=== PATIENT | female | born 1990 | race African-American/Black ===

== ENCOUNTER 2024-04-24 09:08 | Outpatient (AMB) | payer OTHER, SELFPAY ==
--- NOTE | 2024-04-24 09:04 | MHC.PC.OV ---
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 Intake Note: New patient vist Is last menstrual period known: Yes Last menstrual period: 04/03/24 Allergies pollen extracts [POLLEN] Allergy (Unknown, Verified 04/24/24 09:44) RUNNY NOSE Medication List - Last Reconciled 04/24/24 by YASMANI Walsh- No Known Home Meds Tobacco use date assessed: 04/24/24 Dental Screening Dental Screen Date: 04/24/24 Did you have a dental visit in the last 12 months?: Yes Did you have a dental problem in the last 6 months where you did not have access to dental care?: No Was dental information given to patient?: Patient has dentist HPI HPI Comments History of Present Illness Details 33 y/o F with morbid obestiy, MDD, MEREDITH Health Maintenance: 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 Ketapine? Vistaril. Used this before with some effect, it also helped her to sleep. never been in counseling but is interested. Plan Refer to counselor for MDD and generalized anxiety disorder. No interest in starting medications at this time. Refer to bariatrics for assistance with weight loss. Return to the office in 2 months to follow up to ensure that your consults have gone through and that you have no new needs. Labs were not done today as we will be following up with the bariatric office which performs an in-depth health evaluation. 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 1. Little interest or pleasure in doing things: more than half the days 2. Feeling down, depressed, or hopeless: more than half the days 3. Trouble falling or staying asleep, or sleeping too much: more than half the days 4. Feeling tired or having little energy: nearly every day 5. Poor appetite or overeating: nearly every day 6. Feeling bad about yourself - or that you are a failure or have let yourself or your family down: nearly every day 7. Trouble concentrating on things, such as reading the newspaper or watching television: not at all 8. Moving or speaking so slowly that other people could have noticed. Or the opposite - being so fidgety or restless that you have been moving around a lot more than usual: more than half the days 9. Thoughts that you would be better off or of hurting yourself in some way: not at all Total score: 17 Depression Screening Interpretation: Positive Depression Screening Follow-up: Existing condition Depression Screening Done: Yes 81758 - PHQ-9 Billing: Yes Source: Developed by Drs. Chidi Orozco, Marbella Kearney, Truong Byrne and colleagues, with an educational melchor from [employer] Thrive Questionnaire Date Thrive assessed: 04/24/24 I am a: Patient What is your living situation today?: I have a steady place to live Within the past 12 months, did the food you bought not last and you didn't have the money to get more?: Never true Within the past 12 months, did you worry whether your food would run out before you got money to buy more?: Never true Do you have trouble paying for medicines?: No Do you have trouble getting transportation to medical appointments?: No Do you have trouble paying your heating and electricity bill?: No Do you have trouble taking care of your child, family member or friend?: No Do you have trouble with day-to-day activities such as bathing, preparing meals, shopping, managing finances, etc.?: No Are you currently unemployed and looking for a job?: No Are you interested in more education?: No Please select the resources that you would like help with: None Currently or been in a relationship where the following occur: no concerns reported THRIVE Score: 0 AUDIT C Alcohol Use Questionnaire (AUDIT-C) 1. How often do you have a drink containing alcohol?: Never 3. How often do you have six or more drinks on one occasion?: Never Total Score: 0 Score Reviewed/Action Taken: Yes MEREDITH-7 AMB Questionnaire MEREDITH-7 Date MEREDITH - 7 assessed: 04/24/24 Feeling nervous, anxious, or on edge: 3 = Nearly every day Not being able to stop or control worryin = Nearly every day Worrying too much about different things: 3 = Nearly every day Trouble relaxin = Nearly every day Being so restless that it is hard to sit still: 3 = Nearly every day Becoming easily annoyed or irritable: 3 = Nearly every day Feeling afraid as if something awful might happen: 3 = Nearly every day Total MEREDITH-7 score (0-4 normal; 5-9 mild; 10-14 moderate; 15-21 severe): 21 Source: Developed by Drs. Chidi Orozco, Marbella Kearney, Truong Byrne and colleagues, with an educational melchor from [employer] MEREDITH-7 Assessment Billing MEREDITH-7 Assessment Tool: MEREDITH-7 Assessment 35361 ACT Questionnaire In the past 4 weeks, how much of the time did your asthma keep you from getting as much done at work, school or at home?: Most of the time During the past 4 weeks, how often have you had shortness of breath?: More than once a day During the past 4 weeks, how often did your asthma symptoms wake you up at night or earlier than usual in the morning?: 2-3 nights a week During the past 4 weeks, how often have you had to use your rescue inhaler or nebulizer medication?: More than 3 times per day (Two times a day ) How would you rate your asthma control during the past 4 weeks?: Somewhat controlled ACT Interpretation: Positive Score: 9 Review of Systems Const Details: Constitutional: Denies fever. Skin: Denies rash. Eye: Denies eye pain. ENMT: Denies sore throat and nasal congestion. Respiratory: Denies shortness of breath and cough. Gastrointestinal: Denies nausea, vomiting or abdominal pain. Cardiovascular: Denies chest pain and syncope. Genitourinary: Denies dysuria. Musculoskeletal: Denies back pain and extremity pain. Neurologic: Denies headaches, confusion, and weakness. Psychiatric: Denies suicidal thoughts and substance abuse. Allergy/ Immunologic: Denies impaired immunity. Physical exam (Primary Care) Vital Signs: Last Vital Signs Temp 98.4 F 04/24/24 09:27 Pulse 74 04/24/24 09:27 BP 118/74 04/24/24 09:27 Pulse Ox 97 04/24/24 09:27 Oxygen Delivery Method Room Air 04/24/24 09:27 BMI result Body Mass Index 44.3 BMI Assessment/Plan discussion: High BMI High, discussed plan: lifestyle Tobacco/Smoking Status: Tobacco use Status Tobacco use date assessed 04/24/24 04/24/24 09:28 Patient Tobacco Use Status Former Tobacco user 04/24/24 09:28 e-Cigarette/Vaping Use Currently Using 04/24/24 09:28 PHQ-9: PHQ-9 Score PHQ-9: Total score 17 04/24/24 11:12 Depression Screening Interpretation: Positive Depression Screening Follow-up: Existing condition Thrive Assessment: Date of Thrive Assessment Date Thrive assessed 04/24/24 04/24/24 09:53 Currently or been in a relationship where the following occur: no concerns reported Const Other: General: Well developed, well nourished, in no acute distress. Appears stated age. Head: Normocephalic, atraumatic. Eyes: Pupils are equal, round and reactive to light and accommodation. Conjunctivae are clear. Vision grossly normal. Ears: TMs clear AU, EACS WNL Nose: Patent, without discharge. Mouth: There are no ulcers or lesions noted. No inflammation, no post nasal drip, no plaques nor exudates. Neck: Supple, no adenopathy or thyromegaly. Lungs: Clear to auscultation bilaterally. No rales, rhonchi or wheeze noted. Good air flow in all villaseñor. Heart: Regular rate and rhythm. No murmurs, click, rubs or gallops are noted. Abdomen: Bowel sounds present in all quadrants. The abdomen is soft, nontender, with no masses or organomegaly noted. No hernias are noted. Musculoskeletal: Joints are nontender, without swelling, redness, or effusions. Range of motion is observed to be normal. Pulses: Peripheral pulses are equal and palpable bilaterally. Extremities: No clubbing, cyanosis nor edema is noted. Neurologic: Gait and station normal. Cranial Nerves 2-12 intact. Motor strength grossly symmetrical and intact. No sensory loss. Balance normal. Skin: No rashes, ulcers, or lesions noted. Turgor is good. Skin color is good. Hair and nails are without abnormalities. Psych: Normal eye contact, affect and mood appropriate, and normal interactions. Patient is alert and appropriate to context. Assessment and Plan Assessment & Plan (1) Encounter for general adult medical examination without abnormal findings: Code(s): Z00.00 - Encounter for general adult medical examination without abnormal findings (2) MEREDITH (generalized anxiety disorder): Code(s): F41.1 - Generalized anxiety disorder (3) Morbid obesity with BMI of 40.0-44.9, adult: Code(s): E66.01 - Morbid (severe) obesity due to excess calories; Z68.41 - Body mass index [BMI] 40.0-44.9, adult (4) MDD (major depressive disorder), recurrent episode: Code(s): F33.9 - Major depressive disorder, recurrent, unspecified Qualifiers: Major depression episode severity: mild Qualified Code(s): F33.0 - Major depressive disorder, recurrent, mild Orders: Referrals Counseling Referral F41.1 - Generalized anxiety disorder Bariatric Surgery Referral E66.01 - Morbid (severe) obesity due to excess calories, Z68.41 - Body mass index [BMI] 40.0-44.9, adult Patient Instructions: Walk-In Care (Urgent Care): We Make it Easy Walk-in for urgent medical issues such as: ? Seasonal Allergies ? Insect Bites ? Cough ? Diarrhea ? Acute Asthma Attacks ? Back, Knee or Joint Pain ? Ear Infection ? Fever without a Rash ? Headaches ? Nausea ? [place] Eye, Rash or Skin Irritation ? Sore Throat ? Sports Physicals ? Vomiting Most insurances are accepted. Patients do not need to be part of the [facility] to seek care at the walk-in clinic. Locations [facility] , [place] [address] ? [phone] [facility] Walk-In Care in [place] provides services to ages 18 and over. Open Saturday-Saturday: 8 a.m. to 5 p.m. and Saturday: 9 a.m. to 3 p.m.* *Hours may vary due to staffing availability. To confirm Walk-In Care hours in [place], please call [phone]. [address] [place] [address] ? [phone] [facility] in [place] provides services to ages 12 and over. Open Saturday-Saturday: 8 a.m. to 5 p.m. Hours may vary due to staffing availability. To confirm Walk-In Care hours in [place], please call [phone]. LABORATORY SERVICES: [facility] Lab ? Primary Location [address] [place] [address] Saturday through Saturday 6:00 AM ? 5:00 PM Saturday 7:00 AM ? 11:00 AM* [phone] The [facility] Lab is centrally located near the front entrance of the [facility] for easy outpatient access. Convenient parking is provided for outpatients. *Hours may vary due to staffing availability. To confirm Laboratory hours for any location, please call [phone]. Offsite Location For your convenience, we offer offsite laboratory draw stations at the following locations: [address] [place] [address] ? [address], [address] Saturday through Saturday 7:30 AM ? 1:00 PM* [phone] *Hours may vary due to staffing availability. To confirm Laboratory hours for any location, please call [phone]. [place] ? [address] Saturday through Saturday 6:00 AM ? 3:30 PM* Saturday 6:30 AM ? 3 PM* [phone] *Hours may vary due to staffing availability. To confirm Laboratory hours for any location, please call [phone] [place] [address] Saturday through Saturday 7:30 AM ? 4:00 PM* [phone] *Hours may vary due to staffing availability. To confirm Laboratory hours for any location, please call [phone]. [facility] Saturday through 9:00 AM ? 4:00 PM* *Hours may vary due to staffing availability. To confirm Laboratory hours for any location, please call [phone]. Appointments are not necessary. Walk-ins are welcome. Like all the departments throughout the [facility], our Lab undergoes frequent reviews to ensure the quality and accuracy of test results, and our staff takes special pride in its status as a nationally accredited facility. Patient Portal: ONE PATIENT. ONE RECORD. BETTER CARE. [facility] has a fully integrated, cutting-edge mobile electronic health information system that has revolutionized the way we care for our patients and manage our organization. This system improves communication and coordination enabling us to provide safe, higher-quality care, and an overall positive experience for staff and patients. Our first priority, as always, is to deliver the highest quality care possible. The system is running in the background supporting that priority. This portal is for all [facility] and [facility] services and practices. If you are experiencing any technical difficulties with enrolling or logging into the Patient Portal please complete the [facility] Patient Portal Technical Support Form. [facility] now offers a new secure on-line interactive tool for patients to review their health information ? ?Patient Portal. This interactive web portal will enable patients and their families to take an active role in their care by providing easy, secure access to their health information via the internet. The Patient Portal provides patients with instant access to their health information, including laboratory results, medications, allergies, demographic information, visit history, and more. In addition to managing their own care, parents and health care proxies with authorized consent will appreciate the ability to access the records of those individuals for whom they provide care. Please note: if you wish to gain access (Proxy) to another patient?s portal, you will be required to come to the Medical Records Department in person at [facility]. Both the patient giving proxy access and the proxy will need to provide photo identification and complete the appropriate authorization. The Patient Portal also allows track their appointments online. The [facility] Patient Portal also saves patients time by allowing them to submit updates to their demographic and contact information prior to their visits. Portal email notifications will also alert patients to any new activity on their portal, such as test results and new appointments. In order to initially enroll in the [facility] Patient Portal, you will need to enter some required information including the following: your [facility] Medical Record number your personal home email address name date of Please note: In order to enroll in the [facility] Patient Portal, we need to have your email address on file in your electronic medical record. ?The email address needs to be specific for one person (yourself) in order for your Portal enrollment to be successful. ?You can update your email address in person with our Registration staff when you are registering for a hospital visit. ?Otherwise, you will need to come to the Health Information Management (Medical Records) Department at [facility]. ?We are open from Saturday ? Saturday from 7:30 a.m. ? 4:30 p.m. ?You will be required to present a photo id. Once you have successfully enrolled in the Patient Portal, you will receive a one-time user id and password for the Portal, sent to your email address. ?This will allow you to log into the Patient Portal within 99 hrs and reset your own logon id and password, and define personal security questions. ?Once your permanent login and password have been set, you can log into the [facility] Patient Portal at any time via the blue button above or from the Portal Logon button on any page of the [facility] website. [facility] and [facility] encourage all of our patients to enroll in Patient Portal as it presents a valuable opportunity for patients and their families to actively participate in their care and stay healthy Welcome to [facility]. ?We look forward to working with you. Health screenings for women You should visit your health care provider from time to time, even if you are healthy. The purpose of these visits is to: Screen for medical issues Assess your risk for future medical problems Encourage a healthy lifestyle Update vaccinations and other preventive care services Help you get to know your provider in case of an illness Information Even if you feel fine, you should still see your provider for regular checkups. These visits can help you avoid problems in the future. For example, the only way to find out if you have high blood pressure is to have it checked regularly. High blood sugar and high cholesterol levels also may not have any symptoms in the early stages. A simple blood test can check for these conditions. There are specific times when you should see your provider or receive specific health screenings. The [place] Preventive Services Task Force publishes a list of recommended screenings. Below are screening guidelines for women ages 18 to 39. BLOOD PRESSURE SCREENING Your blood pressure should be checked at least once every 3 to 5 years if: Your blood pressure is in the normal range (top number less than 120 mm Hg and bottom number less than 80 mm Hg) You don't have risk factors for high blood pressure Ask your provider if you need your blood pressure checked more often if: The top number is 120 to 129 mm Hg or the bottom number is 70 to 79 mm Hg You have diabetes, heart disease, kidney problems, are overweight, or have certain other health conditions You have a first-degree relative with high blood pressure You are Black You had high blood pressure during a If the top number is 130 mm Hg or greater or the bottom number is 80 mm Hg or greater, this is considered stage 1 hypertension. Schedule an appointment with your provider to learn how you can reduce your blood pressure. Watch for blood pressure screenings in your area. Ask your provider if you can stop in to have your blood pressure checked. BREAST CANCER SCREENING Experts do not agree about the benefits of breast self-exams in finding breast cancer or saving lives. Talk to your provider about what is best for you. A screening mammogram is not recommended for most women under age 40. Your provider may discuss and recommend mammograms, MRI scans, or ultrasounds if you have an increased risk for breast cancer, such as: A mother or sister who had breast cancer at a young age (most often starting screening earlier than the age the close relative was diagnosed) You carry a high-risk genetic marker CERVICAL CANCER SCREENING Cervical cancer screening should start at age 21 years unless your provider advises otherwise. After the first test: Women ages 21 through 29 should have a Pap test every 3 years. Exoprts do not agree on whether HPV testing is recommended for this age group. Women ages 30 through 65 should be screened with either a Pap test every 3 years or the HPV test every 5 years or both tests every 5 years (called cotesting ). Women who have been treated for precancer (cervical dysplasia) should continue to have Pap tests for 20 years after treatment or until age 65, whichever is longer. If you have had your uterus and cervix removed (total hysterectomy), and you have not been diagnosed with cervical cancer or precancer (high grade cervical neoplasia), you do not need cervical cancer screening. CHOLESTEROL SCREENING Cholesterol screening should begin at: Age 45 for women with no known risk factors for coronary heart disease Age 20 for women with known risk factors for coronary heart disease Repeat cholesterol screening should take place: Every 5 years for women with normal cholesterol levels More often if changes occur in lifestyle (including weight gain and diet) More often if you have diabetes, heart disease, kidney problems, or certain other conditions DIABETES SCREENING You should be screened for diabetes starting at age 35 and then repeated every 3 years if you have no risk factors for diabetes. Screening may need to start earlier and be repeated more often if you have other risk factors for diabetes, such as: You have a first degree relative with diabetes. You are overweight or have obesity. You have high blood pressure, prediabetes, or a history of heart disease. Screening for diabetes should be done if you are planning to become and you are overweight and have other risk factors such as high blood pressure. DENTAL EXAM Go to the dentist once or twice every year for an exam and cleaning. Your dentist will evaluate if you need more frequent visits. EYE EXAM Have an eye exam every 5 to 10 years before age 40. If you have vision problems, have an eye exam every 2 years or more often if recommended by your provider. You should have an eye exam that includes an examination of your retina (back of your eye) at least every year if you have diabetes. IMMUNIZATIONS Commonly needed vaccines include: Flu shot: get one every year. COVID-19 vaccine: ask your provider what is best for you. Tetanus-diphtheria and acellular pertussis (Tdap) vaccine: have one at or after age 19 as one of your tetanus-diphtheria vaccines if you did not receive it as an adolescent. Tetanus-diphtheria: have a booster (or Tdap) every 10 years. Varicella vaccine: receive 2 doses if you never had chickenpox or the varicella vaccine. Hepatitis B vaccine: receive 2, 3, or 4 doses, depending on your exact circumstances. Measles, mumps, and rubella (MMR) vaccine: receive 1 to 2 doses if you are not already immune to MMR. Your provider can tell you if you are immune. Ask your provider about the human papillomavirus (HPV) vaccine if: You have not received the HPV vaccine in the past You have not completed the full vaccine series (you should catch up on this shot) Ask your provider if you should receive other immunizations if you have certain health problems that increase your risk for some diseases such as pneumonia. INFECTIOUS DISEASE SCREENING Women who are sexually active should be screened for chlamydia and gonorrhea up until age 25. Women 25 years and older should be screened for chlamydia and gonorrhea if at high risk. Screening for hepatitis C: All adults ages 18 to 79 should get a one-time test for hepatitis C. people should be screened at every . Screening for human immunodeficiency virus (HIV): All people ages 15 to 65 should get a one-time test for HIV. Depending on your lifestyle and medical history, you may also need to be screened for infections such as syphilis and HIV, as well as other infections. PHYSICAL EXAM All adults should visit their provider from time to time, even if they are healthy. The purpose of these visits is to: Screen for disease Assess your risk of future medical problems Encourage a healthy lifestyle Update your vaccinations and other preventive care services Maintain a relationship with a provider in case of an illness Your height, weight, and BMI should be checked at every exam. During your exam, your provider may ask you about: Depression and anxiety Diet and exercise Alcohol and tobacco use Safety issues, such as using seat belts, smoke detectors, and intimate partner violence Your medicines and risk for interactions SKIN SELF-EXAM Your provider may check your skin for signs of skin cancer, especially if you're at high risk, such as if you: Have had skin cancer before Have close relatives with skin cancer Have a weakened immune system OTHER SCREENING Talk with your provider about colon cancer screening if you have a strong family history of colon cancer or polyps, or if you have had inflammatory bowel disease or polyps yourself. Routine bone density screening of women under 40 is not recommended. Coding Level of Care Code New Pt Prev Care 18-39yr(76854 Diagnoses Encounter for general adult medical examination without abnormal findings Z00.00 MEREDITH (generalized anxiety disorder) F41.1 Morbid obesity with BMI of 40.0-44.9, adult E66.01; Z68.41 Mild episode of recurrent major depressive disorder F33.0 Major depression episode severity: mild Additional Codes MEREDITH-7 Assessment Billing - MEREDITH-7 Assessment Tool: MEREDITH-7 Assessment 46912 ([id number])
[2024-04-24 09:27] VITALS: BP 118/74; PULSE 74; TEMP 36.9; O2SAT 97; BMI 44.3
== END 2024-04-24 09:57 | disposition home or self-care (01) ==
PROVIDERS: PCP Nurse Practitioner Family; Visit Provider Physician Assistant Medical
DX: Z00.00 Encounter for general adult medical examination without abnormal findings (principal); E66.01 Morbid (severe) obesity due to excess calories; Z68.41 Body mass index [BMI] 40.0-44.9, adult; F33.0 Major depressive disorder, recurrent, mild; F41.1 Generalized anxiety disorder
CPT/HCPCS: 99385

== ENCOUNTER → 2024-04-27 10:35 | Outpatient (BNVA) | payer OTHER, SELFPAY | PROVIDERS: PCP Nurse Practitioner Family; Visit Provider Physician Assistant Surgical ==

== ENCOUNTER 2024-06-16 14:43 | Outpatient (AMB) | payer OTHER, SELFPAY ==
[2024-06-16 14:15] VITALS: BMI 44.3
--- NOTE | 2024-06-16 14:15 | MHC.OFFVISWM ---
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 She heard about our program from her partner. Her goal is to lose weight and achieve a healthy lifestyle. She reports first being concerned about her weight 12 years ago, highest weight to date was 254. Current weight is 242 pounds with a BMI of 44.3. She has tried multiple methods of weight loss including fad diets without permanent results. She lives with her kids and daughters father. 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 She wakes at:?545 am, and goes to bed at?1 am. Dinner is at 730 pm. Breakfast: skip AM snack: skip Lunch: salad w grilled chicken, burger w fries PM snack: fruit Dinner: rice, beans, meat, salad After dinner: skip Other snacks: chocolate and candy Liquids: 16-32 oz water, 24 oz coke zero/diet coke or sprite, 48 oz cranberry juice daily Alcohol/marijuana/tobacco intake: 8 glasses wine per weekend, 4 shots vodka per weekend, smoke and edible cannabis daily, vape tobacco daily Exercise: none, no equipment at home, could join gym, r PF. 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 Current occupational exposures/hazards: No Cognitive needs: No Hearing needs: No Vision needs: Yes (Glasses/contacts) Telehealth Telehealth Telehealth Platform: Telephone Location of provider rendering services: practice address Location of patient: address on file Patient Identification confirmed using: Name, : Yes Telehealth method: voice only Patient verbally consented to treatment: Yes Patient verbally consented to billing insurance company: Yes Patient informed of any privacy concerns related to visit: Yes Minutes spent on Phone/Video with Pt.: 50 Assessment & Plan Assessment & Plan (1) Morbid obesity with BMI of 40.0-44.9, adult: Code(s): E66.01 - Morbid (severe) obesity due to excess calories; Z68.41 - Body mass index [BMI] 40.0-44.9, adult Category: Medical Plan: This is a?33 yo female who will start our SWL program to prepare for bariatric surgery.? Blood work, CXR, ECG, Abd US and UGI have been ordered. She is being scheduled for initial consultations. She will start SWL classes and watch the first three videos before her next appointment. 1. You have been given a link to our software kurt ([employer]) to generate an individualized nutritional and exercise plan specific for you. Please send me a screenshot of the plans you will generate Meal to include lean meat (beef, fish, pork, turkey, chicken), or turkish yogurt, or egg whites, or beans with a salad with olive oil and fruits (berries, pears, apples, kiwi). Avoid salt, breads, potatoes, rice, pasta, desserts. 2. If you choose shakes, each shake would be drunk slowly, like coffee over a period of 2 hours. 3. If you choose bars, cut each bar in 4 pieces and eat each piece in 30 min to make each bar last 2 hours. 4. I emphasized the importance of measuring accurately the food portion and measure it when serving the food on a plate 5. The meal portions include a specific number of forks of meat (protein) and salad. You always eat the meat portion but you can replace up to half of salad/vegetables portion with rice, potatoes or pasta, or a fruit ?if you like. The less you do it the better weight loss will be. 6. One full-size fork is what can be scooped on the fork without falling aside and not what can be bit with the fork. Use regular forks like those you find in a typical restaurant. 7.? Please send me weight measurements from your body composition scale as soon as possible and then once a week. Always include your diet and exercise plan. The best time to weigh yourself is first thing in the morning after going to the bathroom. 8. The best choice for exercise would be treadmill, stationary bike or elliptical machine. Please join [employer] gym to have the greatest availability of exercise equiptment. This will also allow you to test different pieces of equipment with an ultimate goal of buying a piece of equipment to have at your house. Alternatively start walking outside daily, tracking calories with a goal of 300 calories per day, daily. You can download the kurt [email or web address] which can track your time, distance and calories while walking outside. You press start in the ukrt when you start and then stop when you are finished. 9.?Goal is to lose at least 1.5-2 lbs per week, and about 10% before surgery, which is about 24 pounds 10. Please follow the diet plan exactly without any change. If you don't like something about the plan or you feel hungry you need to communicate with me so I can help you revise the plan. My cell phone number to communicate with me by text is [phone] Patient is morbidly obese and is not considered stable at this time.?I spent a total of 70 minutes reviewing/updating records, examining the patient and counseling the patient on weight management as detailed above. Orders: Orders Complete Blood Count Auto Diff Today E66.01 - Morbid (severe) obesity due to excess calories, Z68.41 - Body mass index [BMI] 40.0-44.9, adult Comprehensive Met. Panel Today E66.01 - Morbid (severe) obesity due to excess calories, Z68.41 - Body mass index [BMI] 40.0-44.9, adult Vitamin B12 and Folate Today E66.01 - Morbid (severe) obesity due to excess calories, Z68.41 - Body mass index [BMI] 40.0-44.9, adult Zinc Today E66.01 - Morbid (severe) obesity due to excess calories, Z68.41 - Body mass index [BMI] 40.0-44.9, adult C Reactive Protein Today E66.01 - Morbid (severe) obesity due to excess calories, Z68.41 - Body mass index [BMI] 40.0-44.9, adult Vitamin B1 Today E66.01 - Morbid (severe) obesity due to excess calories, Z68.41 - Body mass index [BMI] 40.0-44.9, adult Vitamin A Today E66.01 - Morbid (severe) obesity due to excess calories, Z68.41 - Body mass index [BMI] 40.0-44.9, adult Vitamin D 25-OH Total Today E66.01 - Morbid (severe) obesity due to excess calories, Z68.41 - Body mass index [BMI] 40.0-44.9, adult ECG 12 lead EKG Today E66.01 - Morbid (severe) obesity due to excess calories, Z68.41 - Body mass index [BMI] 40.0-44.9, adult FL upper GI w air Today E66.01 - Morbid (severe) obesity due to excess calories, Z68.41 - Body mass index [BMI] 40.0-44.9, adult Insulin Today E66.01 - Morbid (severe) obesity due to excess calories, Z68.41 - Body mass index [BMI] 40.0-44.9, adult Hemoglobin A1c Today E66.01 - Morbid (severe) obesity due to excess calories, Z68.41 - Body mass index [BMI] 40.0-44.9, adult Lipid Panel Today E66.01 - Morbid (severe) obesity due to excess calories, Z68.41 - Body mass index [BMI] 40.0-44.9, adult IRON PROFILE Today E66.01 - Morbid (severe) obesity due to excess calories, Z68.41 - Body mass index [BMI] 40.0-44.9, adult TSH reflex Free T4 Today E66.01 - Morbid (severe) obesity due to excess calories, Z68.41 - Body mass index [BMI] 40.0-44.9, adult Ferritin Today E66.01 - Morbid (severe) obesity due to excess calories, Z68.41 - Body mass index [BMI] 40.0-44.9, adult US abdomen comp w elastography Today E66.01 - Morbid (severe) obesity due to excess calories, Z68.41 - Body mass index [BMI] 40.0-44.9, adult XR chest 2V Today E66.01 - Morbid (severe) obesity due to excess calories, Z68.41 - Body mass index [BMI] 40.0-44.9, adult Referrals Behavioral Health Referral E66.01 - Morbid (severe) obesity due to excess calories, Z68.41 - Body mass index [BMI] 40.0-44.9, adult
== END 2024-06-16 15:19 | disposition home or self-care (01) ==
LOC: HO.HBS 14:43
PROVIDERS: PCP Nurse Practitioner Family; Visit Provider Physician Assistant Surgical
DX: E66.01 Morbid (severe) obesity due to excess calories (principal); Z68.41 Body mass index [BMI] 40.0-44.9, adult
CPT/HCPCS: 99205

== ENCOUNTER → 2024-06-16 14:43 | Outpatient (BNVA) | payer OTHER, SELFPAY | PROVIDERS: PCP Nurse Practitioner Family; Visit Provider Physician Assistant Surgical ==

== ENCOUNTER 2024-06-25 08:00 | Outpatient (REF) | payer OTHER, SELFPAY ==
--- NOTE | ~2024-06-25 | US_ITS ---
EXAMINATION: US COMPLETE ABDOMEN WITH LIVER ELASTOGRAPHY CLINICAL INFORMATION: Morbid obesity. COMPARISON: None available. TECHNIQUE: Real-time imaging of the abdominal viscera. Noninvasive ultrasound liver fibrosis assessment is performed using Aleta ElastPQ point quantification shear wave elastography (pSWE) with a C5-2 MHz transducer. Multiple elastography samples are obtained. FINDINGS: PANCREAS: Normal. The visualized pancreatic head and body are normal in appearance. The remainder of the pancreas is obscured from visualization by the overlying bowel gas. ABDOMINAL AORTA: The proximal, middle, and distal aortic segments are normal in caliber. INFERIOR VENA CAVA: Visualized portions are normal. LIVER: The liver is normal in size but with increased echogenicity. No focal lesion or intrahepatic biliary duct dilatation. The right lobe measures 17.0 cm in length. The left lobe measures 13.3 cm in length. Portal flow is towards the liver (hepatopetal). Shear wave liver elastography median stiffness is 1.64 m/s (reference: normal median stiffness is 1.3 m/s or less). IQR/median stiffness to assess sampling precision is 0.19 (reference: good quality data set is IQR/median stiffness of 0.15 or less). GALLBLADDER: The gallbladder is physiologically distended without evidence of stones, sludge, polyps, wall thickening or pericholecystic fluid. COMMON BILE DUCT: Normal in caliber measuring 0.4 cm in diameter. RIGHT KIDNEY: Normal. No hydronephrosis. No renal calculi or focal parenchymal lesions. The kidney measures 10.3 cm in maximum dimension. LEFT KIDNEY: Normal. No hydronephrosis. No renal calculi or focal parenchymal lesions. The kidney measures 10.7 cm in maximum dimension. SPLEEN: Normal. The spleen measures 8.9 cm in maximum dimension. FREE FLUID: None. US/US abdomen comp w elastography IMPRESSION: 1. Hepatic steatosis. 2. Liver elastography: In the absence of other known clinical signs, measurements rule out compensated advanced chronic liver disease. If there are known clinical signs, further testing may be needed for confirmation. REFERENCE: Society of Radiologists in Ultrasound Liver Stiffness Thresholds (2019): LIVER STIFFNESS THRESHOLDS: *Liver Stiffness equal or less than 1.3 m/s: High probability of being normal. *Liver Stiffness less than 1.7 m/s: In the absence of other known clinical signs, rules out compensated advanced chronic liver disease. *Liver Stiffness 1.7-2.1 m/s: Suggestive of compensated advanced chronic liver disease but need further test for confirmation. *Liver Stiffness over 2.1 m/s: Rules in compensated advanced chronic liver disease. *Liver Stiffness over 2.4 m/s: Suggestive of clinically significant portal hypertension. QUALITY OF DATA SET: *IQR/Median value equal or less than 0.15 implies a quality data set. *IQR/Median value over 0.15 implies a poor quality data set. SIGNIFICANT CHANGE FROM PRIOR EXAM: Significant change if liver stiffness measurement is 10% or greater from prior exam. OTHER CONSIDERATIONS: The stage of liver fibrosis may be overestimated in the setting of acute hepatitis, liver inflammation, elevated liver function tests, hepatic vascular congestion, obstructive cholestasis, non-fasting state, and infiltrative diseases such as amyloidosis and lymphoma. In some patients with NAFLD, the liver stiffness thresholds for compensated advanced chronic liver disease may be lower. In causes other than viral hepatitis and NAFLD, liver stiffness thresholds are not well established. Electronically signed by: Alonso Boyle MD 07/08/2024 07:32 AM EDT
--- NOTE | ~2024-06-25 | XR_ITS ---
EXAMINATION: XR CHEST 2 VIEWS CLINICAL INFORMATION: Morbid obesity. COMPARISON: None. TECHNIQUE: Frontal and lateral views of the chest were obtained. FINDINGS: The heart, great vessels, pulmonary vasculature and mediastinum are normal. The lungs show no focal infiltrate, effusion or pneumothorax. There is no acute osseous abnormality. XR/XR chest 2V IMPRESSION: No active cardiopulmonary disease. Electronically signed by: Tigre Kingston MD 07/22/2024 01:04 PM EDT RP
--- NOTE | 2024-06-25 08:07 | ECG_ITS ---
Test Reason : mor obs Blood Pressure : / mmHG Vent. Rate : 095 BPM Atrial Rate : 095 BPM P-R Int : 150 ms QRS Dur : 080 ms QT Int : 350 ms P-R-T Axes : 034 040 016 degrees QTc Int : 439 ms Normal sinus rhythm Normal ECG No previous ECGs available Referred By: Shai Rm Electronically Signed By:ROSANNA RILEY
[2024-06-25 08:24] LABS: MANUAL DIFF FLAG NO
[2024-06-25 08:34] LABS: Basophils Percent Auto 0.5 % (0-2); Eosinophils Absolute Auto 0.2 X10*3/uL (0.0-0.4); Eosinophils Percent Auto 1.9 % (0-4); Hematocrit 39.2 % (37.0-47.0); Hemoglobin 13.7 g/dl (12.0-16.0); Imm Gran Abs Auto 0.02 X10*3/uL (0.00-0.03); Imm Gran Pct Auto 0.2 % (0.0-0.4); Lymphocytes Absolute Auto 2.7 X10*3/uL (1.2-4.9); Lymphocytes Percent Auto 31.3 % (20-40); Mean Corpuscular HGB Conc 34.9 g/dl (31.0-35.0); Mean Corpuscular Hemoglobin 28.2 pg (27.0-33.0); Mean Corpuscular Volume 80.8 fL (80.0-98.0); Mean Platelet Volume 9.7 fL (9.4-12.3); Monocytes Absolute Auto 0.5 X10*3/uL (0.1-1.2); Monocytes Percent Auto 5.5 % (2-11); Neutrophils Absolute Auto 5.2 x10*3/uL (2.0-8.3); Neutrophils Percent Auto 60.6 % (45-73); Platelet Count 305 X10*3/uL (160-400); Red Blood Count 4.85 X10*6/uL (4.20-5.50); White Blood Count 8.5 X10*3/uL (4.8-10.8)
[2024-06-25 08:40] LABS: Estimated Average Glucose 105 mg/dL; Hemoglobin A1c % 5.3 % (<6.0)
[2024-06-25 09:06] LABS: Alanine Aminotransferase 20 U/L (0-31); Albumin Level 4.1 g/dL (3.5-5.0); Alkaline Phosphatase 58 U/L (39-117); Anion Gap 11 (12-20); Aspartate Amino Transferase 16 U/L (5-31); Bilirubin Total 0.6 mg/dL (0.0-1.0); Blood Urea Nitrogen 12 mg/dL (9-16); C Reactive Protein 0.72 mg/dL (< or = 0.50); Calcium 8.7 mg/dL (8.4-10.2); Carbon Dioxide 25 mmol/L (22-29); Chloride 109 mmol/L (96-108); Cholesterol 162 mg/dL (<200); Estimated Glomerular Filt Rate > 60; Glucose Random 108 mg/dL (60-115); HDL Cholesterol 34 mg/dL (>40); Iron 62 mcg/dL (30-160); LDL Cholesterol Calculated 106 mg/dL (<100); Percent Iron Saturation 20 % (15-50); Potassium 3.9 mmol/L (3.3-5.1); Sodium 141 mmol/L (135-145); Total Iron Binding Capacity 309 mcg/dL (228-428); Total Protein 7.3 g/dL (6.5-8.0); Triglycerides 113 mg/dL (<150); Unsaturated Iron Binding 247 ug/dL
[2024-06-25 09:29] LABS: Ferritin 45 ng/mL (10-122); Vitamin D 25-OH Total 27.3 ng/mL (>30)
[2024-06-25 09:40] LABS: Folate 4.9 ng/mL (> or = 4.0); Vitamin B12 375 pg/mL (200-900)
[2024-06-25 10:39] LABS: Insulin 10 uU/mL (2-29)
[2024-06-30 01:02] LABS: Zinc 60 mcg/dL (60-130)
[2024-07-01 02:23] LABS: Vitamin A 45 mcg/dL (38-98)
[2024-07-02 11:18] LABS: Vitamin B1 8 nmol/L (8-30)
== END 2024-06-25 08:01 | disposition home or self-care (01) ==
LOC: HO.US 08:00
PROVIDERS: PCP Nurse Practitioner Family; Visit Provider Physician Assistant Surgical
DX: E66.01 Morbid (severe) obesity due to excess calories (principal); Z68.41 Body mass index [BMI] 40.0-44.9, adult; K76.0 Fatty (change of) liver, not elsewhere classified
CPT/HCPCS: 36415; 71046; 76700; 76981; 80053; 80061; 82306; 82607; 82728; 82746; 83036; 83525; 83540; 84425; 84443; 84590; 84630; 85025; 86140; 93005

== ENCOUNTER 2024-07-20 12:00 | Outpatient (AMB) | payer MEDICAID, SELFPAY ==
--- NOTE | 2024-07-20 11:59 | MHC.OFFVISWM ---
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 She was initially seen on 06/16/2024 with a weight of 242 lb and a BMI of 44.3. She is having financial struggles and cannot buy shakes. 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 Current occupational exposures/hazards: No Cognitive needs: No Hearing needs: No Vision needs: Yes (Glasses/contacts) Telehealth Telehealth Telehealth Platform: Telephone Location of provider rendering services: practice address Location of patient: other Patient Identification confirmed using: Name, : Yes Telehealth method: voice only Patient verbally consented to treatment: Yes Patient verbally consented to billing insurance company: Yes Patient informed of any privacy concerns related to visit: Yes Minutes spent on Phone/Video with Pt.: 15 Assessment & Plan Assessment & Plan (1) Morbid obesity with BMI of 40.0-44.9, adult: Code(s): E66.01 - Morbid (severe) obesity due to excess calories; Z68.41 - Body mass index [BMI] 40.0-44.9, adult Category: Medical Plan: Encouraged to try to adopt as much of the meal plan and exercise plan into her busy schedule. She also has financial struggles but gets food stamps and may be able to use these for her shakes. Encouraged using gym at [facility] [place]. rtc 1 month
[2024-07-20 12:34] VITALS: BMI 43.2
== END 2024-07-20 12:36 | disposition home or self-care (01) ==
LOC: HO.HBS 12:14
PROVIDERS: PCP Nurse Practitioner Family; Visit Provider Physician Assistant Surgical
DX: E66.01 Morbid (severe) obesity due to excess calories (principal); Z68.41 Body mass index [BMI] 40.0-44.9, adult
CPT/HCPCS: 99213

== ENCOUNTER → 2024-07-20 12:00 | Outpatient (BNVA) | payer MEDICAID, SELFPAY | PROVIDERS: PCP Nurse Practitioner Family; Visit Provider Physician Assistant Surgical ==

== ENCOUNTER → 2024-07-29 13:13 | Outpatient (BNVA) | payer MEDICAID, SELFPAY | PROVIDERS: PCP Nurse Practitioner Family; Visit Provider Counselor Mental Health ==

== ENCOUNTER → 2024-07-29 13:13 | Outpatient (AMB) | payer SELFPAY ==
--- NOTE | 2024-07-29 13:15 | A.OFFWM_ITS ---
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 PT was initially referred to this program by her PCP per client's interest due to obesity and desires to have a change after increased difficulties keeping up with her kids physical activity. PT is interested in baristric surgery as a way to speed weight-loss and as a life change comitment to be healthier and happier with her life and functioning. PT reports she has a bad relationship with food, and at this time she has financial issues to get the products recommended. We will meet again to finish assessment, but the patient has been encouraged to discuss with provider alternatives while her finances improve to still work towards her weight-loss. Presenting Concerns Referral Source P Provider. PT sees [facility], had initial visit on 06/16 Reason for referral Completion of behavioral health assessment as part of process for weight-loss surgery. Precipitating Event Obesity. Living Situation Current Living Situation Rent At risk of losing current housing? No Satisfied with current living situation? Yes Comments PT lives with her 3 children. (2 are her own and 1 is her niece, from whom she is her guardian by court). Food/Weight/Diet Expectations of change Initial goal is to Patient goals are PT is implementing the following: Current meal plan: Exercise plan: History/Relationship with food PT reports that growing up she couldn't leave the table without clearing her plate. As a , meals were Beninese style, with multiple carbs in one meal, some fried food, etc. She reports not having a good relationship with food due to childhood habits and family expectations when it comes to food. Example of meals before starting the program: Breakfast: Lunch: Dinner: Snacks: Drinks/Liquids: History/Relationship with weight In the last 10 years, the patient's Lowest weight was and highest Social History Family history and relationship PT is a single mother of 2 never . She is in a relationship with youngest kid father, they don't live together. She has been appointed by court as her niece guardian since she was 15 y/o, but she has been under patient's care since before that. PT has 2 siblings. They have a close relationship with youngest sister. Bio-father , bio-mom is alive. She doesn't communicate with mother often. 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 niece is 18 y/o, son is 12 and daughter is 6. Developmental history and status None reported. Social support Children. Community support None Mu-Ism/Spirituality Bahai Cultural/Ethnic information Beninese. PT was born in [place]. Moved to [place] at 6 y/o. Legal Involvement and History Current or historical involvement with the legal system? None reported. Education Highest grade completed Associates Degree in business. Preferred learning style Visual Currently enrolled in educational program? Yes (Finishing her bachelor's in Business. ) Interested in further educational program? Yes Educational Interests/Skills Business. 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 ) Wants help to find employment? No Meaningful activities Listen to podcast, reading books. Financial Situation Describe current financial situation Often struggles with finance Financial assistance? None Service Service? No Mental Health and Addiction Treatment Current/Past substance abuse? Yes Comments Alcohol: occasionally on weekends but not every weekend. When drinks she have several shots or wine. might get drunk 1 or 2 times at month. Cigarettes/Tobacco: smoked cigarettes for 2 years several years ago. Started vaping in 2020 but has stopped after first kurt with Mb when realized the negative effects from it. Cannabis/Edibles: She has a medical card for anxiety, she Smokes cannabis daily for sleep. She does edibles randomly, probably less than 2 at month, but can go several months without using any. Current/Past addictive behavior concerns? No Questionnaires PHQ-9 Over the last 2 weeks, how often have you been bothered by any of the following problems? 1. Little interest or pleasure in doing things: several days 2. Feeling down, depressed, or hopeless: several days 3. Trouble falling or staying asleep, or sleeping too much: nearly every day 4. Feeling tired or having little energy: several days 5. Poor appetite or overeating: nearly every day 6. Feeling bad about yourself - or that you are a failure or have let yourself or your family down: nearly every day 7. Trouble concentrating on things, such as reading the newspaper or watching television: several days 8. Moving or speaking so slowly that other people could have noticed. Or the opposite - being so fidgety or restless that you have been moving around a lot more than usual: several days 9. Thoughts that you would be better off or of hurting yourself in some way: not at all Total score: 14 Depression Screening Interpretation: Positive (Scores from new PT pack, scanned on 07/18. New will will be administered at next visit. ) Depression Screening Done: Yes Source: Developed by Drs. Chidi Orozco, Marbella Kearney, Truong Byrne and colleagues, with an educational melchor from [employer]. Binge Eating Scale Group 1 A. I don't feel self-conscious about my wt. or body size when I'm with others. B. I feel concerned about how I look to others, but it normally does not make me fell disappointed with myself C. I do get self-conscious about my appearance and wt. which makes me feel disappointed in myself. D. I feel very self-conscious about my wt. and frequently I feel intense shame and disgust for myself. I try to avoid social contacts because of my self-consci ousness. Response Group 1: C Group 2 A. I don't have any difficulty eating slowly in the proper manner. B. Although I seem to gobble down foods, I don't end up feeling stuffed because of eating to much. C. At times, I tend to eat quickly and then, I feel uncomfortably full af terwards. D. I have the habit of bolting down my food, without really chewing it. When this happens I usually feel uncomfortably stuffed because I've eaten to much. Response Group 2: A Group 3 A. I feel capable to control my eating urges when I want to. B. I feel like I have failed to control my eating more than the average person. C. I feel utterly helpless when it comes to feeling in control of my eating urges. D. Because I feel so helpless about controlling my eating I have become very desperate about trying to get control. Response Group 3: B Group 4 A. I don't have the habit of eating when I'm bored. B. I sometimes eat when I'm bored, but often I'm able to get busy and get my mind off food. C. I have a regular habit of eating when I'm bored, but occasionally, I can use some other activity to get my mind off eating. D. I have a strong habit of eating when I'm bored. Nothing seems to help me breath the habit. Response Group 4: B Group 5 A. I'm usually physically hungry when I eat something. B. Occasionally, I eat something on impulse even though I really am not hungry. C. I have the regular habit of eating foods, that I might not really enjoy, to satisfy a hungry feeling even though physically, I don't need the food. D. Although I'm not physically hungry, I get a hungry feeling in my mouth that only seems to be satisfied when I eat a food, like sandwich, that fills my mouth. Sometimes, when I eat the food to satisfy my mouth hunger, I then spit the food out so I won't gain weight. Response Group 5: A Group 6 A. I don't feel any guilt or self-hate after I overeat. B. After I overeat, occasionally I feel guilt or self-hate. C. Almost all the time I experience strong guilt or self-hate after I overeat. Response Group 6: B Group 7 A. I don't lose total control of my eating when dieting even after periods when I overeat. B. Sometimes when I eat a forbidden food on a diet, I feel like I blew it and eat even more. C. Frequently, I have the habit of saying to myself, I've blown it now, why not go all the way, when I overeat on a diet. When that happens I eat more. D. I have a regular habit of starting a strict diets for myself but I break the diets by going on an eating binge. My life seems to be either a feast or famine. Response Group 7: D Group 11 A. I don't have any problem stopping eating when I feel full. B. I usually can stop eating when I feel full but occasionally overeat leaving me feeling uncomfortably stuffed. C. I have a problem stopping eating once I start and usually I feel uncomfortably stuffed after I eat a meal. D. Because I have a problem not being able to stop eating when I want, I sometimes have to induce vomiting to relieve my stuffed feeling. Response Group 11: A Group 12 A. I seem to eat just as much when I'm with others, Family social gatherings as when I'm by myself. B. Sometimes, when I'm with other persons, I don't eat as much as I want to eat because I'm self-conscious about my eating. C. Frequently, I eat only a small amount of food when others are present, because I'm very embarrassed about my eating. D. I feel so ashamed about overeating that I pick times to overeat when I know no one will see me. I feel like a closet eater. Response Group 12: A Group 14 A. I don't think much about trying to control unwanted eating urges. B. At least some of the time, I feel my thoughts are pre-occupied with trying to control my eating urges. C. I feel that frequently I spend much time thinking about how much I ate or about trying not to eat anymore. D. It seems to me that most of my waking hours are pre-occupied by thoughts about eating or not eating. I feel like I'm constantly struggling not to eat. Response Group 14: B Group 15 A. I don't think about food a great deal. B. I have strong craving for food but they last only for brief periods of time. C. I have days when I can't seem to think about anything else but food. D. Most of my days seem to be pre-occupied with thoughts about food. I feel like I live to eat. Response Group 15: A Group 16 A. I usually know whether or not I'm physically hungry. I take the right portion of food to satisfy me. B. Occasionally, I feel uncertain about knowing whether or not I'm physically hungry. A these times it's hard to know how much food I should take to satisfy me. C. Even though I might know how many calories I should eat, I don't have any idea what is a normal amount of food for me. Response Group 16: B Binge Eating Score: 10 Score less than 17 Minimal Risk Score between 18-26 Moderate Risk Score between 27-46 High Risk Assessment & Plan Assessment & Plan (1) Adjustment disorder: Code(s): F43.20 - Adjustment disorder, unspecified Qualifiers: Adjustment disorder type: unspecified type Qualified Code(s): F43.20 - Adjustment disorder, unspecified Plan: PT not cleared today. Will return on 08/17/24 to continue assessment. Coding Level of Care Code New Pt Tele Psytx >53 mins ([id number]) Patient Type New Diagnoses Adjustment disorder, unspecified type F43.20 Adjustment disorder type: unspecified type Time Spent (min) 60
== END ==
PROVIDERS: PCP Nurse Practitioner Family; Visit Provider Counselor Mental Health
DX: F43.20 Adjustment disorder, unspecified (principal)
CPT/HCPCS: 90837

== ENCOUNTER 2024-09-28 08:16 | Outpatient (AMB) | payer OTHER, SELFPAY ==
[2024-09-28 10:53] VITALS: BMI 43.2
--- NOTE | 2024-09-28 10:53 | MHC.OFFVISWM ---
VS Expanded 09/28/24 10:53 Height 5 ft 2 in Weight 236 lb BMI 43.2 Intake Visit Reasons: TV Follow Up SWL/Consult Shai *SEE COMMENTS* Allergies pollen extracts [POLLEN] Allergy (Unknown, Verified 09/28/24 10:54) RUNNY NOSE Medication List - Last Reconciled 09/28/24 by Jemal Patel MD cholecalciferol (vitamin D3) 125 mcg PO DAILY 90 days hydroxyzine HCl 25 mg PO BEDTIME thiamine HCl (vitamin B1) 100 mg PO DAILY HPI HPI TV Follow Up SWL/Consult Shai *SEE COMMENTS*: Details: Start time: 10am, End time: 11am ?I spent 55 minutes speaking with the patient on the phone plus an additional 5 minutes reviewing and updating records for a total of 60 minutes HPI Comments Details: Patient started the process in June. However she lost the insurance and had to discontinue. 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 Current occupational exposures/hazards: No Cognitive needs: No Hearing needs: No Vision needs: Yes (Glasses/contacts) Telehealth Telehealth Telehealth Platform: Telephone Location of provider rendering services: practice address Location of patient: address on file Patient Identification confirmed using: Name, : Yes Telehealth method: voice only Patient verbally consented to treatment: Yes Patient verbally consented to billing insurance company: Yes Patient informed of any privacy concerns related to visit: Yes Minutes spent on Phone/Video with Pt.: 60 Assessment & Plan Assessment & Plan (1) Morbid obesity with BMI of 40.0-44.9, adult: Code(s): E66.01 - Morbid (severe) obesity due to excess calories; Z68.41 - Body mass index [BMI] 40.0-44.9, adult Category: Medical Plan: 1.? Plan for lap sleeve gastrectomy. If diaphragmatic or ventral hernias are present at time of surgery, these will be repaired laparoscopically as well. Risks and complications include possible conversion to an open procedure, anastomotic leak, bleeding requiring transfusion, small bowel obstruction, , DVT and pulmonary embolism, cardiac, or pulmonary complications, as skilled nursing complications such as anastomotic ulcer, insufficient weight loss and vitamin deficiencies. I emphasized the importance of close follow-up, adherence to instructions and good communication. 2. You will receive a link of our software kurt to generate an individualized nutritional and exercise plan specific for you. Please send me a screenshot of the plans you will generate Meal to include lean meat (beef, fish, pork, turkey, chicken), or azeri yogurt, or egg whites, or beans with a salad with olive oil and fruits (berries, pears, apples, kiwi). Avoid salt, breads, potatoes, rice, pasta, desserts. ?3. If you choose shakes, each shake would be drunk slowly, like coffee in a period of 2 hours. ?4. If you choose bars, cut each bar in 4 pieces and eat each piece in 30min ?to make each bar last 2 hours. ?5. I emphasized the importance of measuring accurately the food portion and measure it when serving the food in plate ?6. The meal portions include a specific number of forks of meat and salad. You always eat the meat portion but you can replace up to half of salad/vegetables portion with rice, potatoes or pasta, or a fruit ?if you like. The less you do it the better weight loss will be. ?7. One full-size fork is what it can be scooped on the fork without falling aside and not what can be bit with the fork. Use regular forks like those you find in a typical restaurant. ?8.? Please send me weight measurements as soon as possible and then once a week. Always include your diet and exercise plan. 9. The best choice would be to purchase a stationary bike, elliptical or treadmill at home that can track calories. Let me know if you do so I can give you an exercise plan. ?10.?It is important of avoiding and for at least 18 months postoperatively and has been discussed at the infosession. ?11. Goal is to lose at least 1.5-2lbs per week ?12. Goal to lose 10% of your weight before surgery, which is about 24lbs. Ultimate weight goal: 217lbs before surgery 13. Please follow the diet plan exactly without any change. If you don't like something about the plan or you feel hungry you need to communicate with me so I can help you revise the plan. You should not change the plan yourself. 14. To be scheduled for EGD due to history of GERD. The possibility of biopsies was discussed. Patient needs to avoid use of NSAIDs and aspirin for 1 week prior to EGD. Risks of perforation and bleeding was discussed with the patient. This will be an outpatient procedure with IV sedation.
== END 2024-09-28 11:00 | disposition home or self-care (01) ==
LOC: HO.HBS 08:16
PROVIDERS: PCP Nurse Practitioner Family; Visit Provider Surgery
DX: E66.01 Morbid (severe) obesity due to excess calories (principal); Z68.41 Body mass index [BMI] 40.0-44.9, adult; E66.813 Obesity, class 3
CPT/HCPCS: 99215

== ENCOUNTER → 2024-10-15 12:22 | Outpatient (AMB) | payer OTHER, MEDICAID, SELFPAY ==
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
--- OUTSIDE RECORDS SUMMARY | 2024-10-21 02:06 | XMS_ITS ---
Author Organization [facility] Address [address] [place] [phone] Care Team Providers Care Rn Ccu Name Role Phone KENRICK RODRIGUEZ Unavailable [phone] REASON FOR VISIT Annual Exam, IUD check Social History Sex Assigned At : Social History Observation Description Sex Assigned At Female Encounters Encounter Location Date Provider Diagnosis [facility] [address] [place] [address] [place] [address] [id number] 06/18/2024 KENRICK RODRIGUEZ Plan Of Treatment No Information Progress Notes * Nicole BRICEÑODOB:1990 (33 yo F)Acc No.[id number]:06/18/2024 Progress Notes Patient:?Nicole BRICEÑO Provider:ANTOINE RODRIGUEZ :1990???Age:33 Y???Sex:Female D ate:06/18/2024 Address:[address] [place] [id number] Subjective: * Chief Complaints: * ???1. Annual Exam, IUD check . * Medical History:? Objective: * Vitals:? Assessment: Plan: * Treatment: * Billing Information: * Visit Code:? * Procedure Codes:? * Electronic signature of TIMOTHY RODRIGUEZ CNM on 10/21/2024 at 02:06 AM EST Sign off status: Pending * Provider:ANTOINE RODRIGUEZ Date:?06/18/2024 Generated for Meera brunson/Gerry/Tiffanyitting on:?10/21/2024 02:06 AM EST
--- OUTSIDE RECORDS SUMMARY | 2024-10-21 02:07 | XMS_ITS | Data Portability ---
Author Organization [facility] [address] Address [address] [place] [address] Assessment No assessment recorded. Plan of Treatment Reminders Order Date Submit Date Provider Last Modified By Organization Details Last Modified Time Details Appointments None recorded. Lab None recorded. Referral None recorded. Procedures None recorded. Surgeries None recorded. Imaging None recorded. Medication Orders cephalexin 500 mg capsule 2022 023 [facility] #[id number], [address] [place], [address], 3 12:44:05 ofloxacin 0.3 % eye drops 2022 023 [facility] #[id number], [address] [place], [address], 3 12:44:05 Patient TargetsNo targets recorded. Patient Instructions Encounter Date Encounter Id Patient Instructions Last Modified By Organization Details Last Modified Time 02/08/2023 [id number] ophelia: care instructions [email or web address] Not available 02/08/2023 12:44:12 Reason for Referral None Reported. Problems Name Problem SNOMED Code Status Onset Date Resolution Date Notes Provider Name and Address Organization Details Recorded Time Anxiety 87204999 Active 023 [facility] 3 11:44:00 Insomnia 785188146 Active 023 [facility] 3 11:44:07 Problem Notes None recorded. Procedures Surgical History Date Name Laterality Status Provider Name and Address Organization Details Recorded Time tonsillectomy completed Kim [facility] 02/08/2023 11:44:51 Imaging Results None recorded. Procedure Notes None recorded. Medical Equipment None Reported. Medications Name Sig Start Date Stop Date Status Note LastModified by Organization Details LastModified Time quetiapine 300 mg tablet TAKE 1 TABLET BY MOUTH EVERYDAY AT BEDTIME FOR 90 DAYS active Not Available Not Available No t Available cetirizine 10 mg tablet TAKE 1 TABLET BY MOUTH EVERY DAY active Not Available Not Available No t Available azithromyci n 250 mg tablet TAKE 2 TABLETS BY MOUTH TODAY, THEN TAKE 1 TABLET DAILY FOR 4 DAYS 02/08 completed Not Available Not Available Not Available ofloxacin 0.3 % eye drops Instill 1 drop 4 times a day by ophthalmi c route for 7 days. 2022 active Not Available Not Available Not Avai lable quetiapine 100 mg tablet PLEASE SEE ATTACHED FOR DETAILED DIRECTION S active Not Available Not Available No t Available benzonatate 100 mg capsule TAKE 1 CAPSULE BY MOUTH TWICE A DAY NEEDED FOR COUGH active Not Available Not Available No t Available cephalexin 500 mg capsule Take 1 capsule every 8 hours by oral route for 7 days. 2022 active Not Available Not Available Not Avai lable erythromyci n 5 mg/gram (0.5 %) eye ointment APPLY 1 APPLICATI ON IN RIGHT EYE THREE TIMES A DAY active Not Available Not Available No t Available hydroxyzine HCl 25 mg tablet TAKE 1 TABLET BY MOUTH EVERY 8 HOURS NEEDED FOR ANXIETY FOR UP TO 90 DAYS. active Not Available Not Available No t Available Vitals Date Recorded Body weight Body mass index (BMI) Body height Oxygen saturation Oxygen saturation in Arterial blood by Pulse oximetry Heart rate Respiratory rate Body temperature Systolic blood pressure Diastolic blood pressure Provider Name and Address Organization Details Last Updated DateTime 3 905927. 47 g 40.2 kg/m2 160.02 cm 98 % 98 % 60 /min 18 /min 98.7 [degF] 126 mm[Hg] 77 mm[Hg] Kim Riddle [facility] 3 11:46:35 Social History Question Answer Notes LastModified by Organizat ion Details LastModified Time Tobacco Smoking Status Never Smoker [facility] 02/08/2023 11:44:42 What Is Your Level Of Alcohol Consumption? Occasional [email or web address] Information not available 02/08/2023 Which Illicit Or Recreational Drugs Have You Used? Kelvin [email or web address] Information not available 02/08/2023 Do You Use Any Illicit Or Recreational Drugs? Yes Information not available 02/08/2023 Do You Or Have You Ever Used Any Other Forms Of Tobacco Or Nicotine? No [email or web address] Information not available 02/08/2023 Sex: Unknown Functional Status None recorded. Mental Status None recorded. Family History Nothing Reported. Medical History No medical history recorded. Gynecological HistoryNo gynecological history recorded. Obstetrics History GPAL:G 0 P 0 0 0 0 Past Encounters Encounter ID Performer Location Encounter Start Date Encounter Closed Date Diagnosis/Indication Diagnosis SNOMED-CT Code Diagnosis ICD10 Code [id number] [facility] [address] [place] [address] 08/01/2018 14:41:23 08/01/2018 15:14:17 [id number] [place] [address] [address] [place] [address] 02/08/2023 11:25:19 02/08/2023 12:49:23 Internal hordeolum of upper eyelid 021030490 H00.029 Health Concerns Section Related Observation LastModified by Organization Detai ls LastModified Time None Recorded Concern Status LastModified by Organization Details LastModified Time None Recorded Advance Directives Directive None Recorded Payers Encounter Date Sequence Insurance Name Policy Number Policy Greer Covered Member ID Greer Member ID Guarantor Name 08/01/2018 1 [facility] NET PLAN (MEDICAID HMO) SARABJIT Fermin Salcido [id number] Nicole Fermin 02/08/2023 1 [facility] PLAN (MEDICAID HMO) SARABJIT Fermin Salcido [id number] Nicole Fermin Notes Date Note Type Note Provider Name and Address Organization Details Recorded Time 02/08/2023 text/html Eye problemsRepo rted bypatient.Location:[facility] Eye Symptoms:redness;disc harge Onset/Timindays Catalina Young [place] [facility] [place], [address], [place] - [facility] 02/08/2023 13:04:09 OBGyn Episode No OBEpisode recorded.
--- OUTSIDE RECORDS SUMMARY | 2024-10-21 02:07 | XMS_ITS ---
Author Organization [facility] Address [address] [place] [address] [phone] Care Team Providers Care Sediment Remediation Consultant Name Role Phone EM FRANCIS Unavailable [phone] Allergies No Known Allergies Results Component Value Reference Range Notes Test, Urine Reviewed date:05/11/2024 01:17:56 PM Interpretation:Negative Performing Lab: Notes/Report: Negative Test, Urine NEG Lot # [id number] Exp. Date 05/13/[address]/NG, Urine Reviewed date:05/17/2024 09:45:23 PM Interpretation:Negative Performing Lab:[facility], [facility] [employer] [facility], [place], [address] Carlos Rodriguez DO Notes/Report: GONORRHEA, AMPLIFIED NEGATIVE NEGATIVE CHLAMYDIA, AMPLIFIED NEGATIVE NEGATIVE DNA Test Results SEX: F : 1990 AGE: 33 [id number] CLINIC ID: [id number] SS: PHYSICIAN: EM FRANCIS FLOOR WAXER COLLECTED BY: [id number] Specimen Source: Urine Specimen Type: Urine, Kelin PCR Medium Neisseria gonorrhoeae: NEGATIVE Normal Value: Negative Chlamydia trachomatis: NEGATIVE Normal Value: Negative Wet Mount Reviewed date:05/11/2024 05:14:52 PM Interpretation:BV Performing Lab: Notes/Report: BV Clue Cells pos WBC neg Hyphae neg Trichomonas neg pH 5.5 JOSE Prep pos whiff REASON FOR VISIT Assessment, IUD insertion Medications Medication SIG (Take, Route, Frequency, Duration) Notes Start Date End Date Status metroNIDAZOLE 500 MG 1 tablet Orally Twi ce a day, every 12 hours for 7 days 05/11/2024 Active Liletta (52 MG) 18.6 MCG/DAY as directed Intrauterine 05/11/2024 Act daphne Social History Sex Assigned At : Social History Observation Description Sex Assigned At Female Vital Signs Blood pressure systolic 136 mm Hg 05/11/20 24 Blood pressure diastolic 82 mm Hg 024 Height 63 in 05/11/2024 Weight 244.8 lbs 05/11/2024 BMI 43.36 kg/m2 05/11/2024 Procedures Procedure Date Ordered Date Performed Result Body Sit e IUD Insertion 05/11/2024 05/11/2024 Liletta Encounters Encounter Location Date Provider Diagnosis [facility] [address] [place] [address] [phone] 05/11/2024 EM FRANCIS Encounter for other general counseling and advice on contraception Z30.09 ; Encounter for insertion of intrauterine contraceptive device Z30.430 ; Encounter for test, result negative Z32.02 ; Encounter for screening for infections with a predominantly sexual mode of transmission Z11.3 and Acute vaginitis N76.0 Assessments Encounter Date Diagnosis (ICD Code) Assessment Notes Treatment Notes Treatment Clinical Notes Section Notes 05/11/2024 Encounter for other general counseling and advice on contraception (ICD-10 - Z30.09) Reviewed control options available. Reviewed risk, benefits and side effects of each method. Answered questions and concerns, and used shared decision-making to choose method. Clt interested in hormonal IUD, agreeable to same day insertion Spent ___ minutes doing the following: Chart Prep Obtaining/revie wing history Performing medically necessary exam Counseling/Coor dination of Care Documenting the visit Educating the patient Ordering medication/test /procedures Communication with other providers Interpretation of test performed by others Communication of test results New Patient: 38947 30 Minutes 05/11/2024 Encounter for insertion of intrauterine contraceptive device (ICD-10 - Z30.430) Tolerated insertion well Side effects and danger signs reviewed. Continue additional control until follow-up visit. Report fever, chills, heavy bleeding, abdominal pain, unusual discharge. Report if plastic of IUD felt or if unable to feel IUD strings. Reviewed how to check IUD strings. Spent ___ minutes doing the following: Chart Prep Obtaining/revie wing history Performing medically necessary exam Counseling/Coor dination of Care Documenting the visit Educating the patient Ordering medication/test /procedures Communication with other providers Interpretation of test performed by others Communication of test results New Patient: 14649 30 Minutes 05/11/2024 Encounter for test, result negative (ICD-10 - Z32.02) Reviewed negative results, clt happy with results Spent ___ minutes doing the following: Chart Prep Obtaining/revie wing history Performing medically necessary exam Counseling/Coor dination of Care Documenting the visit Educating the patient Ordering medication/test /procedures Communication with other providers Interpretation of test performed by others Communication of test results New Patient: 30 Minutes 05/11/2024 Encounter for screening for infections with a predominantly sexual mode of transmission (ICD-10 - Z11.3) Reviewed STI screening recommendations and available testing through [employer]. Testing ordered as noted per patient risks and preference. Encouraged safe sex practices. Advised to call for evaluation if any symptoms arise. Reviewed method of communicating results to patient. Spent ___ minutes doing the following: Chart Prep Obtaining/revie wing history Performing medically necessary exam Counseling/Coor dination of Care Documenting the visit Educating the patient Ordering medication/test /procedures Communication with other providers Interpretation of test performed by others Communication of test results New Patient: 30 Minutes 05/11/2024 Acute vaginitis (ICD-10 - N76.0) Reviewed PE and wet mount findings. Discussed dx/tx and prevention of BV. Encouraged condom use during treatment regimen. Info given on Boric Acid vaginal suppositories, aware that toxic if taken PO, samples dispensed. RTC if symptoms persist or worsen Spent ___ minutes doing the following: Chart Prep Obtaining/revie wing history Performing medically necessary exam Counseling/Coor dination of Care Documenting the visit Educating the patient Ordering medication/test /procedures Communication with other providers Interpretation of test performed by others Communication of test results New Patient: 62551 30 Minutes 05/11/2024 Other Schedule annual/PAP and IUD check in 4-6 weeks Spent ___ minutes doing the following: Chart Prep Obtaining/revie wing history Performing medically necessary exam Counseling/Coor dination of Care Documenting the visit Educating the patient Ordering medication/test /procedures Communication with other providers Interpretation of test performed by others Communication of test results New Patient: 31226 30 Minutes Plan Of Treatment Medication Medication Name Sig Start Date Stop Date Notes metroNIDAZOLE 500 MG 1 tablet Orally Twi ce a day, every 12 hours for 7 days 05/11/2024 Liletta (52 MG) 18.6 MCG/DAY as directed Intrauterine 11/2023 Treatment Notes Assessment Notes Encounter for other general counseling and advice on contraception Reviewed control options available . Reviewed risk, benefits and side effects of each method. Answered questions and concerns, and used shared decision-making to choose method. Clt interested in hormonal IUD, agreeable to same day insertion Encounter for insertion of i ntrauterine contraceptive device Tolerated insertion well Side effects and danger signs reviewed. Continue additional control until follow-up visit. Report fever, chills, heavy bleeding, abdominal pain, unusual discharge. Report if plastic of IUD felt or if unable to feel IUD strings. Reviewed how to check IUD strings. Encounter for test , result negative Reviewed negative results, clt happy wit h results Encounter for screening for infections with a predominantly sexual mode of transmission Reviewed STI screening recommendations a nd available testing through [employer]. Testing ordered as noted per patient risks and preference. Encouraged safe sex practices. Advised to call for evaluation if any symptoms arise. Reviewed method of communicating results to patient. Acute vaginitis Reviewed PE and wet mount findings. Discussed dx/tx and prevention of BV. Encouraged condom use during treatment regimen. Info given on Boric Acid vaginal suppositories, aware that toxic if taken PO, samples dispensed. RTC if symptoms persist or worsen Other Schedule annual/PAP and IUD check in 4-6 weeks Next Appt Details Follow Up: 6 Weeks, Reason: IUD check/annual/PAP Procedure Notes * Category Sub-Category Detail Notes Intrauterine Device (IUD) Insertion Consent: General procedure, indicatio ns, risks, benefits, alternative treatments, and expected outcomes have been discussed with this patient.The patient has had an opportunity to ask questions, and all questions have been answered by me. Patient verbalizes understanding and to the best of my knowledge I feel the patient has been adequately informed and consented. The consent form has been signed. Patient has read and retained the brochure on the intrauterine device and has signed the consent form. Device Chosen: Liletta Sounding Length: 7 cm Procedure: Patient was placed i n the dorsal lithotomy position, uterine size and position was confirmed by palpation. A speculum was inserted into the vagina. The cervix and vagina was cleansed with antiseptic solution. Under sterile technique the cervix was grasped with a tenaculum. Gentle traction was used to align the cervix to the uterine cavity. The IUD was inserted without difficulty into the cavity according to the bale opener's instructions. The introducer was removed and the string trimmed to 3 cm. Hemostasis was noted. Patient was counseled with regards to signs and symptoms of infection. Nonsteroidal anti-inflammatory drugs (NSAIDs) were recommended for pain relief. The patient tolerated the procedure well Removal Date: 05/11/2032 Lot #: [id number] Expiration Date: 05/2027 Progress Notes * Nicole BRICEÑODOB:1990 (33 yo F)Acc No.[id number]:05/11/2024 Progress Note Patient:?Nicole BRICEÑO Provider:?Em Francis NP :1990???Age:33 Y???Sex:Female D ate:05/11/2024 Address:[address] [place], [place] [id number] Subjective: * Chief Complaints: * ??? AssessmentIUD i nsertion * HPI: ???Visit Narrative:?Clt presenting for walk in test today. Sexually active with AMAB partner, consistent condom use, but had a couple of days when no condom was used approx 2-3 weeks ago. Reports irregular menses since Nexplanon was removed 5 years ago. Requesting serum beta HCG since previous was missed with urine only. Not seeking and would be open to starting control method in near future. Has used depo and Nexplanon in the past with negative side effects. Partner agreeable to vasectomy, but not currently insured. ?Reason for the visit:? test, IUD insert.?Current form of control:?condoms.?Presenting Symptoms:?cramping, missed period.?LMP:?03/26.?Last date of UPI:?week of April 26.?Clt states last had to have BW done. * ROS:?Gastrointestinal:?Denies?Abdominal pain.?Vaginal/Breast/ Control FU:?Denies?Irregular menses.?Denies?Missed period(s).?Denies?Vaginal bleeding between periods.?Genitourinary:?Denies?Frequent urination.?Denies?Painful urination.? * Medical History:? 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 control:?Nexplanon, condoms.?Last menstrual period:?03/26.?Menarche: ?Age of menarche?11 ???Sexual activity:?currently sexually active, with men.?Sexually Transmitted Diseases (STDs):?Chlamydia, Trichomoniasis (Trich).?Unprotected sex in the last 5 days?:?no.?Unprotected sex in the past 10 days?:?no.? * OB History:?Total pregnancies:?5.?Total living children:?1.?Miscarriage(s):?4.? * Surgical History:?Denies Pas t Surgical History * Hospitalization/Major Diagno stic Procedure:?childbirth * Family History:?No Family Hi story documented..? * Social History:?Food Access:?Food Access?The Client's current access to food is?Secure Food Access ???Housing:?Housing?The client's current living situation is:?stable housing ???Reproductive Life Plan:?Reproductive Life Plan?Do you want to have children??No, I don't want to have children ???Sexual History:?Sexual History?Sexual History Reviewed:?Partners, Practices, Protection/Past STIs, Prevention of ?Currently sexually active??Yes ?Sexually active with:?Men ?Number of male partners?1 ?Your sexual activities include:?oral intercourse, vaginal intercourse ?Reviewed types of EC??No ?Do you use condoms??Yes ?Condoms are used:?always ?Number of partners in past 3 months:?1 ?Number of partners in past year:?1 ?Does your partner(s) currently have any STIs??No ???HIV Risk Assessment:?Additional Questions?Is an HIV Risk Assessment being conducted??No ???PrEP for HIV:?PrEP for HIV?Is the client interested in beginning/continuing PrEP for HIV??No ???Relationships:?Relationships?Has the client experienced any of the following:?Client has never experienced harmful relationships ???Human Trafficking:?Human Trafficking?Experienced:?No ???Tobacco Use:?Tobacco Use?Do you/have you used tobacco??No ?Tobacco Smoking Status?Unknown if ever smoked ???Drugs/Alcohol:?Drug/Alcohol Use?Do you or have you used drugs??Yes, currently ?By what route are you taking drugs? Please check all that apply:?Smoking ?Which drug(s) do you smoke??Marijuana ?Do you or have you used alcohol??No ???Counseling Provided:?Counseling Provided?Please indicate the length of time, in minutes, that counseling was provided.?6 ?Counseling Was Provided By:?julia * Medications:?None * Allergies:?N.K.D.A.no[Allerg ies Verified] Objective: * Vitals:?BP:136/82mm Hg, Ht: 63 in, Wt:244.8lbs, BMI:43.36Index, Ht-cm: 160.02, Wt-k.04. * Examination: ???General Examination: ?GENERAL APPEARANCE:?in no acute distress.?Genitourinary - Female: ?EXTERNAL GENITALS:?normal.?URETHRAL MEATUS:?normal.?URETHRA:?normal.?VAGINA:?healthy pink mucosa without any lesions, white creamy discharge.?BLADDER;?normal.?ADNEXA:?no masses palpated.?ANUS/PERINEUM:?normal.?CERVIX:?normal, no cervical movement tenderness.?UTERUS:?normal size, mobile.?OVARIES:?no masses felt in adnexa.? Assessment: * Assessment: 1.?Encounter for insertion o f intrauterine contraceptive device - Z30.430 (Primary)?2.?Encounter for other general counseling and advice on contraception - Z30.09?3.?Encounter for test, result negative - Z32.02?4.?Encounter for screening for infections with a predominantly sexual mode of transmission - Z11.3?5.?Acute vaginitis - N76.0? Spent ___ minutes doing the following: Chart Prep Obtaining/reviewing history Performing medically necessary exam Counseling/Coordination of Care Documenting the visit Educating the patient Ordering medication/test/procedures Communication with other providers Interpretation of test performed by others Communication of test results New Patient: 45886 30 Minutes. Plan: * Treatment: 2.?Encounter for other gener al counseling and advice on contraception? Notes: Reviewed control options available. Reviewed risk, benefits and side effects of each method. Answered questions and concerns, and used shared decision-making to choose method. Clt interested in hormonal IUD, agreeable to same day insertion?? 3.?Encounter for t est, result negative?LAB: Test, Urine (Collection Date & Time - 05/11/2024)?Negative ? Value Reference Range ? Test, Urine NEG * ?Lot # [id number] * ?Exp. Date 05/13/2025 Notes: Reviewed negative results, clt happy with results??4.?Encounter for screening for infections with a predominantly sexual mode of transmission?LAB: APTIMA COMBO 2 CT/NG, Urine (Collection Date & Time - 05/11/2024 01:19 PM) Notes: Reviewed STI screening recommendations and available testing through [employer]. Testing ordered as noted per patient risks and preference. Encouraged safe sex practices. Advised to call for evaluation if any symptoms arise. Reviewed method of communicating results to patient. ? 5.?Acute vaginitis? Start metroNIDAZOLE Tablet, 500 MG, 1 tablet, Orally, Twice a day, every 12 hours, 7 days, 14 Tablet, Refills 0.?LAB: Wet Mount (Collection Date & Time - 05/11/2024)?BV* ? Value Reference Range ?Clue Cells pos * ?WBC neg * ?Hyphae neg * ?Trichomonas neg * ?pH 5.5 * ?JOSE Prep pos whiff * EM FRANCIS 05/11/2024 05: 13:53 PM EDT > Notes: Reviewed PE and wet mount findings. Discussed dx/tx and prevention of BV. Encouraged condom use during treatment regimen. Info given on Boric Acid vaginal suppositories, aware that toxic if taken PO, samples dispensed. RTC if symptoms persist or worsen ??6.?Others? Notes: Schedule annual/PAP and IUD check in 4-6 weeks?? * Procedures:?Intrauterine Device (IUD) Insertion :?Consent:?General procedure, indications, risks, benefits, alternative treatments, and expected outcomes have been discussed with this patient.The patient has had an opportunity to ask questions, and all questions have been answered by me. Patient verbalizes understanding and to the best of my knowledge I feel the patient has been adequately informed and consented. The consent form has been signed. Patient has read and retained the brochure on the intrauterine device and has signed the consent form. .?Device Chosen:?Liletta.?Sounding Length:?7 cm.?Procedure:?Patient was placed in the dorsal lithotomy position, uterine size and position was confirmed by palpation. A speculum was inserted into the vagina. The cervix and vagina was cleansed with antiseptic solution. Under sterile technique the cervix was grasped with a tenaculum. Gentle traction was used to align the cervix to the uterine cavity. The IUD was inserted without difficulty into the cavity according to the bale opener's instructions. The introducer was removed and the string trimmed to 3 cm. Hemostasis was noted. Patient was counseled with regards to signs and symptoms of infection. Nonsteroidal anti-inflammatory drugs (NSAIDs) were recommended for pain relief. The patient tolerated the procedure well.?Removal Date:?05/11/2032.?Lot #:?[id number].?Expiration Date:?05/2027.? * Procedure Codes:?41403 Pregn claus, [id number] IUD [id number] , [id number] Chlamydia - Amplified [id number] Gonorrhea - Amplified [id number] Liletta [id number] Wet Mount * Follow Up:?6 Weeks (Reason: IUD check/annual/PAP) * Billing Information: * Visit Code:? 49891 New - Low Complexity (IN USE). * Procedure Codes:? 86114 , Urine. 36571 IUD Insertion. 27701 , Urine. 23923 Chlamydia - Amplified probe. 57215 Gonorrhea - Amplified probe. [id number] Liletta IUD. 41898 Wet Mount. * Sign off status: Completed true * Provider:?Em Francis NP Date:? 024 Generated for Meera brunson/Gerry/Franko on:?10/21/2024 02:06 AM EST History and Physical Notes * HPI (History of Present Illness) Category Sub-Category Detail Notes Category Not es Visit Narrative Reason for the visit: test, IUD insert Clt states last had to have BW done. Current form of control: condoms Presenting Symptoms: cramping, missed pe riod LMP: 03/26 Last date of UPI: week of April 26 Examination Category Sub-Category Detail Notes Category Not es Genitourinary - Female EXTERNAL GENITALS: normal VAGINA: healthy pink mucosa without any lesions, white creamy discharge CERVIX: normal, no cervical movement tenderness UTERUS: normal size, mobile OVARIES: no masses felt in ad nexa URETHRAL MEATUS: normal URETHRA: normal BLADDER; normal ADNEXA: no masses palpated ANUS/PERINEUM: normal General Examination GENERAL APPEARANCE: in no acute di stress
--- OUTSIDE RECORDS SUMMARY | 2024-10-21 02:07 | XMS_ITS | Patient Health Record ---
Author Organization [facility] Address [address] [place] [phone] Care Team Providers Care Clinic Physician Director Name Role Phone FACUNDO NORRIS Unavailable [phone] KENRICK RODRIGUEZ Unavailable [phone] Allergies No Known Allergies Results Component Value Reference Range Notes Test, Urine Reviewed date:05/11/2024 01:17:56 PM Interpretation:Negative Performing Lab: Notes/Report: Negative Test, Urine NEG Lot # [id number] Exp. Date 05/13/[address]/NG, Urine Reviewed date:05/17/2024 09:45:23 PM Interpretation:Negative Performing Lab:[facility], [facility], [place], [address] Carlos Rodriguez DO Notes/Report: GONORRHEA, AMPLIFIED NEGATIVE NEGATIVE CHLAMYDIA, AMPLIFIED NEGATIVE NEGATIVE DNA Test Results SEX: F : 1990 AGE: 33 [id number] CLINIC ID: [id number] SS: PHYSICIAN: FACUNDO NORRIS OXYACETYLENE CUTTER COLLECTED BY: [id number] Specimen Source: Urine Specimen Type: Urine, Kelin PCR Medium Neisseria gonorrhoeae: NEGATIVE Normal Value: Negative Chlamydia trachomatis: NEGATIVE Normal Value: Negative Wet Mount Reviewed date:05/11/2024 05:14:52 PM Interpretation:BV Performing Lab: Notes/Report: BV Clue Cells pos WBC neg Hyphae neg Trichomonas neg pH 5.5 JOSE Prep pos whiff Reason For Referral No Information Medications Medication SIG (Take, Route, Frequency, Duration) Notes Start Date End Date Status metroNIDAZOLE 500 MG 1 tablet Orally Twi ce a day, every 12 hours for 7 days 05/11/2024 Active Liletta (52 MG) 18.6 MCG/DAY as directed Intrauterine 05/11/2024 Act daphne Social History Sex Assigned At : Social History Observation Description Sex Assigned At Female Vital Signs Blood pressure diastolic 82 mm Hg 05/11/2024 Height 63 in 05/11/2024 Blood pressure systolic 136 mm Hg 05/11/2024 Weight 244.8 lbs 05/11/2024 BMI 43.36 kg/m2 05/11/2024 Procedures Procedure Date Ordered Date Performed Result Body Sit e IUD Insertion 05/11/2024 05/11/2024 Liletta Encounters Encounter Location Date Provider Diagnosis [facility] [address] [place] [address] [phone] 05/11/2024 FACUNDO NORRIS Encounter for other general counseling and advice [...] others Communication of test results New Patient: 89678 30 Minutes 05/11/2024 Encounter for insertion of [...] others Communication of test results New Patient: 71738 30 Minutes 05/11/2024 Encounter for test, result [...] STI screening recommendations and available testing through [facility]. Testing ordered as noted per patient risks [...] others Communication of test results New Patient: 26545 30 Minutes 05/11/2024 Other Schedule annual/PAP and IUD check in 4-6 weeks Spent ___ minutes doing the following: Chart Prep Obtaining/revie wing history Performing medically necessary exam Counseling/Coor dination of Care Documenting the visit Educating the patient Ordering medication/test /procedures Communication with other providers Interpretation of test performed by others Communication of test results New Patient: 67494 30 Minutes Plan Of Treatment No Information Insurance Providers Payer Name Payer Address Payer Phone Subscriber Number Group Number Insured Name Patient Relationship to Insured Coverage Start Date Coverage End Date [place] ATT CLAIMS [address] [place] [address] [id number] Nicole Fermin Self - patient is the insured Medical (General) History Medical History History ICD Code chronic asthma Chlamydia Trich Hospitalization History Reason Date(Month/Year) childbirth
--- OUTSIDE RECORDS SUMMARY | 2024-10-21 02:07 | XMS_ITS | Data Portability ---
Author Organization [facility], [facility] (Prof.) Address [address], [address] [place] [address] Assessment No assessment recorded. Plan of Treatment Reminders Order Date Submit Date Provider Last Modified By Organization Details Last Modified Time Details Appointments None record ed. Lab None record ed. Referral None record ed. Procedures None record ed. Surgeries None record ed. Imaging None record ed. Medication Orders None record ed. Patient TargetsNo targets recorded. Patient InstructionsNo instructions recorded. Reason for Referral None Reported. Medical Equipment None Reported. Medications Name Sig Start Date Stop Date Status Note LastModified by Organization Details LastModified Time amoxicillin 500 mg capsule active Not Available Not Available N ot Available metronidazole 500 mg tablet active Not Available Not Availabl e Not Available aspirin 81 mg chewable tablet active Not Available Not Availa ble Not Available metoclopramide 10 mg tablet active Not Available Not Available Not Available Vitamin 27 mg iron-0.8 mg tablet active Not Available Not Available No t Available nitrofurantoin monohydrate/macr ocrystals 100 mg capsule active Not Available Not Available Not Available vits 96-ferrous fumarate 27 mg iron-folic acid 800 mcg tablet active Not Available Not Availab le Not Available Vitals None Recorded Social History None recorded. Functional Status None recorded. Mental Status None recorded. Family History Nothing Reported. Medical History No medical history recorded. Gynecological HistoryNo gynecological history recorded. Obstetrics History GPAL:G 0 P 0 0 0 0 Past Encounters Encounter ID Performer Location Encounter Start Date Encounter Closed Date Diagnosis/Indication Diagnosis SNOMED-CT Code Diagnosis ICD10 Code [id number] [address] 09/10/2017 11:29:20 09/10/2017 12:29:[id number] [address] 10/17/2017 11:18:29 10/17/2017 11:18:47 [id number] [facility] [address] [place] [address] 01/13/2018 10:32:37 01/13/2018 10:32:47 [id number] [facility] [address] [place] [address] 01/14/2018 14:52:07 01/14/2018 14:53:31 Health Concerns Section Related Observation LastModified by Organization Detai ls LastModified Time None Recorded Concern Status LastModified by Organization Details LastModified Time None Recorded Advance Directives Directive None Recorded Payers Encounter Date Sequence Insurance Name Policy Number Policy Greer Covered Member ID Greer Member ID Guarantor Name 09/10/2017 1 [facility] [employer] - TOGETHER (MEDICAID HMO) Nicole Fermin [id number] Nicole Fermin 10/15/2017 1 [facility] [employer] - TOGETHER (MEDICAID HMO) Nicole Fermin [id number] Nicole Fermin 01/10/2018 1 [facility] [id number] Nicole Fermin [id number] Nicole Fermin 01/14/2018 1 [facility] [id number] Nicole Fermin [id number] Nicole Fermin OBGyn Episode No OBEpisode recorded.
--- OUTSIDE RECORDS SUMMARY | 2024-10-21 02:07 | XMS_ITS ---
Author Organization [facility] Address [address] [place] [id number] Care Team Providers Care Underground Distribution Engineer Name Role Phone EM FRANCIS Unavailable [phone] REASON FOR VISIT Annual Exam/IUD check Social History Sex Assigned At : Social History Observation Description Sex Assigned At Female Encounters Encounter Location Date Provider Diagnosis [facility] [address] [place] [address] [place] [place] [place], [place] [id number] 06/09/2024 EM FRANCIS Plan Of Treatment No Information Progress Notes * Nicole BRICEÑODOB:1990 (33 yo F)Acc No.[id number]:06/09/2024 Progress Notes Patient:?Nicole BRICEÑO Provider:?Em Francis NP :1990???Age:33 Y???Sex:Female D ate:06/09/2024 Address:[address] [place], [place] [id number] Subjective: * Chief Complaints: * ???1. Annual Exam/IUD check. * Medical History:? Objective: * Vitals:? Assessment: Plan: * Treatment: * Billing Information: * Visit Code:? * Procedure Codes:? * Electronic signature of LOGAN FRANCIS NP on 10/21/2024 at 02:06 AM EST Sign off status: Pending * Provider:Arlene Francis NP Date:? 024 Generated for Printi ng/Faxing/eTransmitting on:?10/21/2024 02:06 AM EST
== END ==
PROVIDERS: PCP Nurse Practitioner Family; Visit Provider Counselor Mental Health
DX: F43.10 Post-traumatic stress disorder, unspecified (principal)
CPT/HCPCS: 90837

== ENCOUNTER 2024-10-21 06:53 | Day surgery (SDC) | payer OTHER, SELFPAY ==
[2024-10-05 09:50] VITALS: BMI 43.2
--- NOTE | 2024-10-06 08:37 | HO.ANESPROP2 ---
Documented by User: Claire Vicente NP 10/06/24 08:37 HPI - Anesthesia Eval Consult details Narrative: 33yo F for Upper Endoscopy PMFSH Active Problems Active Problems: All Active Problems MDD (major depressive disorder), recurrent episode (Acute) Encounter for general adult medical examination without abnormal findings (Acute) Morbid obesity with BMI of 40.0-44.9, adult (Acute) MEREDITH (generalized anxiety disorder) (Acute) Family History Family History Other FH: mental illness Substance use Surgical History Surgical History H/O section History of tonsillectomy Social History Social History Housing: House ([facility]) Patient Tobacco Use Status: Former Tobacco user e-Cigarette/Vaping Use: Currently Using Second Hand Smoke Exposure: No Use of substances other than those prescribed or required for medical reasons: Yes Substance Use Type: Marijuana Substance Use Type Other:: Smoking Substance Use Frequency: Daily Have you been hit, kicked, punched, or otherwise hurt by someone within the past year? 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 Current occupational exposures/hazards: No Cognitive needs: No Hearing needs: No Vision needs: Yes (Glasses/contacts) Meds Allergies Allergy/AdvReac Type Severity Reaction Status Date / Time pollen extracts [POLLEN] Allergy Unknown RUNNY NOSE Verified 09/28/24 10:54 Home Medications ?Medication ?Instructions ?Recorded ?Confirmed ?Last Taken ?Type hydroxyzine HCl 25 mg tablet 25 mg PO BEDTIME 04/27/24 09/28/24 Unknown History Exam Height,Weight and Vital Signs: Height 5 ft 2 in Weight 107.048 kg Assessment and Plan Assessment Anesthesia Assessment: Chart Reviewed Documented by User: Rebecca Corona MD 10/21/24 07:41 PMFSH Family History Family History Other FH: mental illness Substance use Family history of problems with anesthesia: No Surgical History Surgical History H/O section History of tonsillectomy History of Problems with Anesthesia: No Social History Social History Housing: House ([facility]) Patient Tobacco Use Status: Former Tobacco user e-Cigarette/Vaping Use: Currently Using Second Hand Smoke Exposure: No Use of substances other than those prescribed or required for medical reasons: Yes Substance Use Type: Marijuana Substance Use Type Other:: Smoking Substance Use Frequency: Daily Have you been hit, kicked, punched, or otherwise hurt by someone within the past year? 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 Current occupational exposures/hazards: No Cognitive needs: No Hearing needs: No Vision needs: Yes (Glasses/contacts) Meds Allergies Allergy/AdvReac Type Severity Reaction Status Date / Time pollen extracts [POLLEN] Allergy Unknown RUNNY NOSE Verified 09/28/24 10:54 Home Medications ?Medication ?Instructions ?Recorded ?Confirmed ?Last Taken ?Type hydroxyzine HCl 25 mg tablet 25 mg PO BEDTIME 04/27/24 09/28/24 Unknown History Exam Airway Mallampati Class: III TM Dist: >3cm Neck ROM: Full Assessment and Plan Assessment Anesthesia Assessment: Anesthesia Plan Discussed Final Anesthetic Review Family History of Problems with Anesthesia: No History of Problems with Anesthesia: No NPO: Yes ASA Class: III Final Preanesthetic Review: No Changes in Pt Med Stat, Meds/Allgs Chart Reviewed, Consent Obtained/Reviewed and Anes Risks/Benef Reviewed Patient Risk: Intermediate Procedure Risk: Low Anesthetic Plan Anesthetic Plan: TIVA Disposition: Standard PACU
[2024-10-21 07:05] VITALS: BMI 43.0
[2024-10-21] MEDS: Lactated Ringers 1,000 ML 80 ML IVCONT (07:19)
[2024-10-21 07:33] VITALS: BP 137/74; PULSE 58; RESP 16; TEMP 36.1; O2SAT 99
[2024-10-21 07:44] LABS: UPreg QC Valid YES; Urine Pregnancy NEGATIVE (NEGATIVE)
--- NOTE | 2024-10-21 08:21 | MHC.SHP ---
Pre-Procedural Eval Section A - 24 Hr Update-Section A only Date of Service: 10/21/24 The patient is an INPATIENT: No The patient has been examined within 24 hours of the surgical procedure. The History & Physical has been completed within 30 days and I have reviewed it.: Yes Section B - Complete if H&P > 30 days Chief Complaint: Morbid (severe) obesity due to excess calories Relevant Family History (Specify if Yes): No Relevant Social History: None Present Medications: None Medical History: No relevant PMH History of Previous Operations: No relevant previous surgery Allergies: Allergies Allergy/AdvReac Type Severity Reaction Status Date / Time pollen extracts [POLLEN] Allergy Unknown RUNNY NOSE Verified 09/28/24 10:54 Review of Systems Sugical H&P ROS: Negative: Constitution, Cardiovascular, Respiratory, Neurological, Psychiatric, Hem-Onc, Allergic/Immunologic, Gastrointestinal, Genitourinary, Musculoskeletal, Integumentary, Endocrine and Eyes/Ears/Nose/Throat Exam Surgical H&P Exam: Normal: HEENT, Normal: Heart, Normal: Lungs, Normal: Extremities, Normal: Abdomen, Normal: Skin and Normal: Neurological Plan Diagnosis/Plan: Unchanged (EGD to assess the stomach's anatomy. Risks of bleeding and perforation were discussed with the patient and she is in agreement with the plan.) I have reviewed the history and physical and performed a pertinent physical examination on my patient. No changes have occurred unless specified. Time Spent With Patient Time: Total time managing care of this patient today ____ minutes.
--- NOTE | 2024-10-21 08:28 | P.BOP_ITS ---
Brief Operative Note Date of Service: 10/21/24 Pre-op diagnosis: Morbid obesity Post-op diagnosis: same (& small diaphragmatic hernia) Procedure: PROCEDURE DATE: 10/21/2024 PREOPERATIVE DIAGNOSIS: Morbid obesity POSTOPERATIVE DIAGNOSIS: ?Same as above. 1) small hiatal hernia PROCEDURE: Ztycgpxg-plndlu-caiazhquhvgx with biopsies Surgeon: ?Dave Patel M.D.. Ph.D. Pipeline Executive: None ? Anesthesia: IV sedation Estimated blood loss: ?Minimal FINDINGS AND PROCEDURE: ? OPERATIVE INDICATIONS: ?The patient is a 71 year old female known to me who is interested in bariatric surgery. Based on this information I recommended an upper endoscopy to evaluate the stomach's anatomy. Risks and complications of the surgery were discussed with the patient in advance particularly the possibility of perforation or bleeding that may require surgical intervention. The patient understood the risks and was in agreement with the plan. ? PROCEDURE: After informed consent was obtained by the patient, the patient was ? transferred to the Operating Room and was placed in the supine position.? After successful induction of IV sedation, a mouth block was inserted and the patient was placed in the left lateral decubitus position. An upper endoscopy was performed next, the oropharynx and esophagus appeared within the normal limits. There was a small 1-2cm hiatal hernia. The z-line was smooth. Two biopsies were obtained from the distal esophagus 2-3 cm proximal to the GE junction and two additional biopsies from the GE junction. The stomach was entered and it appeared to be of normal size. There was no gastritis. There was no stricture or ulcer. A biopsy was obtained from the gastric fundus and the antrum. No significant bleeding was noted from any of the biopsy sites. Retroflexion of the scope confirmed the presence of a small hiatal hernia. The scope was then advanced into the duodenum which appeared to be normal as well. At that point the duodenum ?and the stomach were decompressed and the scope was withdrawn from the patient's mouth. The patient extubated and was transferred in stable condition to the Recovery Room for further care. I was present and performed all steps of the procedure. There were no residents to assist with this case. Dave Patel M.D., Ph.D. Surgeon: Jemal Patel MD Anesthesia: MAC Was an Pipeline Executive used for this Procedure?: No Estimated blood loss (mL): 0 IV fluids (mL): 400 Pathology: other (1) antrum x1, 2) fundus x1, 3) GE junction x2, 4) distal esophagus x2) Condition: stable Disposition: PACU
[2024-10-21 08:49] VITALS: BP 133/66; PULSE 73; RESP 16; TEMP 36.2; O2SAT 99
[2024-10-21 09:04] VITALS: BP 132/77; PULSE 61; RESP 18; TEMP 36.2; O2SAT 99
== END 2024-10-21 09:41 | disposition home or self-care (01) ==
PROVIDERS: Nurse Practitioner; PCP Nurse Practitioner Family; Visit Provider Surgery
PROC: 0DJ08ZZ Inspection of Upper Intestinal Tract, Via Natural or Artificial Opening Endoscopic (ICD-10-PCS; CPT 43235; principal; 2024-10-21 08:10)
DX: E66.01 Morbid (severe) obesity due to excess calories (principal); Z68.41 Body mass index [BMI] 40.0-44.9, adult; K44.9 Diaphragmatic hernia without obstruction or gangrene; K20.80 Other esophagitis without bleeding; R16.0 Hepatomegaly, not elsewhere classified; K74.00 Hepatic fibrosis, unspecified; Z87.891 Personal history of nicotine dependence; E53.8 Deficiency of other specified B group vitamins; E55.9 Vitamin D deficiency, unspecified; Z79.899 Other long term (current) drug therapy
CPT/HCPCS: 43239; 81025; 88305; 88313; 88342; J2003; J2704

== ENCOUNTER → 2024-10-21 06:53 | Outpatient (BNV) | payer OTHER, SELFPAY | PROVIDERS: PCP Nurse Practitioner Family; Visit Provider Surgery | DX: K44.9 Diaphragmatic hernia without obstruction or gangrene (principal) | CPT/HCPCS: 43239 ==

== ENCOUNTER 2024-12-02 15:19 | Outpatient (AMB) | payer OTHER, SELFPAY ==
--- NOTE | 2024-12-02 16:16 | MHC.PC.OV ---
Vital Signs 12/02/24 16:19 Height 5 ft 2 in Weight 235 lb BMI 43.0 Intake Visit Reasons: [employer] *[phone] Allergies pollen extracts [POLLEN] Allergy (Unknown, Verified 12/02/24 16:17) RUNNY NOSE Medication List - Last Reconciled 12/02/24 by Nithya Díaz, SCREW MACHINE OPERATOR SINGLE SPINDLE- cholecalciferol (vitamin D3) 125 mcg PO DAILY 90 days hydroxyzine HCl 25 mg PO BEDTIME thiamine HCl (vitamin B1) 100 mg PO DAILY Tobacco use date assessed: 12/02/24 Dental Screening Dental Screen Date: 12/02/24 Did you have a dental visit in the last 12 months?: Yes Did you have a dental problem in the last 6 months where you did not have access to dental care?: No Was dental information given to patient?: Patient has dentist HPI HPI Comments History of Present Illness Details 33 y/o F with morbid obestiy, MDD, MEREDITH, Vit D def Health Maintenance: Pap active with wind project manager Tdap 2018 Specialists: MOTION [employer]URE [employer] GRIP Telehealth visit: The patient is a 33-year-old female presenting with concerns related to weight management. She was previously referred to a weight biosolids management technician for consideration of bariatric surgery. However, she expresses a definitive preference for exploring non-surgical options due to negative surgical experiences of acquaintances. Despite the recommendation for bariatric intervention, she firmly desires to pursue alternative weight loss methods and believes she can achieve results with proper guidance. The patient has not engaged with a payroll services analyst recently and acknowledges a lifelong challenge with food relationships. She is open to discussing strategies such as dietary modifications and nutritional counseling as initial steps. She expresses a need for support in managing her weight without surgical intervention. Social History - Recent exploration of weight management strategies, specifically outside of surgical interventions - Strong desire to improve overall health and feel better physically - Reports a long-standing challenging relationship with food - No recent engagement with a payroll services analyst or cell changer Plan - Referral to a payroll services analyst for personalized dietary counseling as a primary step in weight management - Follow-up appointment scheduled in three months to evaluate progress with the payroll services analyst and discuss any further interventions Patient was informed and verbally consented to the use of an ambient scribe for clinic note documentation during this visit. Discussion Notes During the visit, I discussed with the patient the importance of initially consulting with a payroll services analyst to develop a tailored dietary plan. I emphasized that while non-surgical options require changes in lifestyle and habits, they can effectively support weight loss goals. I addressed the use of injectables and cautioned against them due to lifelong dependency and lack of insurance coverage. I reassured the patient of the availability of other non-surgical options and the importance of a comprehensive approach. A referral to a payroll services analyst was made, and we discussed setting a follow-up appointment in three months to assess her progress. I advised maintaining a positive outlook and trusting the process to feel better and be healthier. Patient Instructions - Schedule and attend an appointment with the referred payroll services analyst - Consider telehealth or in-person consultations based on preference - Focus on making sustainable dietary changes as guided by the payroll services analyst - Prepare to revisit and evaluate progress in three months - Stay positive and adhere to the outlined weight management plan - Contact the office with any questions or concerns regarding the plan Total time spent caring for the patient today was 15 minutes. This includes time spent before the visit reviewing the chart, time spent during the visit, and time spent after the visit on documentation, reviewing laboratory results, diagnostic imaging, medications, performing a medically necessary evaluation, counseling on diagnoses, care coordination, ordering appropriate tests, ordering appropriate medications, review of tests performed by other providers, reporting test results with the patient, communication with other healthcare providers. 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 How many drinks containing alcohol do you have on a typical day when you are drinking?: 1 or 2 3. How often do you have six or more drinks on one occasion?: Less than monthly Total Score: 1 MEREDITH-7 AMB Questionnaire MEREDITH-7 Date MEREDITH - 7 assessed: 04/24/24 Source: Developed by Drs. Chidi Orozco, Marbella Kearney, Truong Byrne and colleagues, with an educational melchor from [employer]. Physical exam (Primary Care) Tobacco/Smoking Status: Tobacco use Status Tobacco use date assessed 04/24/24 04/24/24 09:28 Patient Tobacco Use Status Former Tobacco user 10/21/24 08:45 e-Cigarette/Vaping Use Currently Using 04/24/24 11:12 Thrive Assessment: Date of Thrive Assessment Date Thrive assessed 04/24/24 04/24/24 09:53 Telehealth Telehealth Telehealth Platform: Mobile Iron Location of provider rendering services: practice address Location of patient: address on file Patient Identification confirmed using: Name, : Yes Telehealth method: voice only Patient verbally consented to treatment: Yes Patient verbally consented to billing insurance company: Yes Patient informed of any privacy concerns related to visit: Yes Minutes spent on Phone/Video with Pt.: 10 Coding Level of Care Code Tele Est Pt Level 2 (50725) Complex EM visit Add On G2211 Diagnoses Morbid obesity with BMI of 40.0-44.9, adult E66.01; Z68.41 Assessment & Plan Assessment & Plan (1) Morbid obesity with BMI of 40.0-44.9, adult: Code(s): E66.01 - Morbid (severe) obesity due to excess calories; Z68.41 - Body mass index [BMI] 40.0-44.9, adult Category: Medical Plan . Orders: Referrals [facility] Referral E66.01 - Morbid (severe) obesity due to excess calories, Z68.41 - Body mass index [BMI] 40.0-44.9, adult
[2024-12-02 16:19] VITALS: BMI 43.0
--- OUTSIDE RECORDS SUMMARY | 2024-12-02 17:41 | XMS_ITS | Continuity of Care Document ---
Author Organization [facility] Address [address] [place] [address]- Care Team Providers Care Stroke Belt Sander Operator Name Role Phone Eduardo Cage MD Primary Care Physician [phone] Encounter [facility] Date(s): 10/10/24 - 11/09/24 [facility] [address] [place], [place] [address] Encounter Type: Triage Allergies, Adverse Reactions, Alerts No Known Allergies Immunizations Given and Recorded Vaccine Date Status Refusal Reason SARS-CoV-2 (COVID-19) Ad26 vaccine 02/19/21 Given influenza virus vaccine, inactivated 1 10/12/[address] influenza virus vaccine, inactivated 11/28/16 Give n Human Papillomavirus Vaccine 03/20/19 Given Human Papillomavirus Vaccine 2 02/18/19 Given tetanus/diphtheria/pertussis, acel(Tdap) 06/28/17 Given pneumococcal 23-valent vaccine 11/28/16 Given 1Result Comment: [facility] [id number] 2Result Comment: PATIENT TOLERATED WELL GARDASIL #1 Medications Albuterol (Eqv-Proventil HFA) 90 mcg/inh inhalation aerosol 2 puffs, Inhalation, Every 6 hours, use with spacer chamber, # 8.5 Gm, 3 Refills, Maintenance, 08/14/24 12:05:00 PM EDT, [facility]/pharmacy #[id number], Partial fill upon patient request if the prescription is for a schedule II opioid drug., 155, cm, 08/14/24 11:30:00 EDT, Height Start Date: 08/14/24 Status: Ordered Quantity: 8.5 Unit: g Repeat number: 4 CPAP Machine See Instructions, Maintenance, 06/26/16 9:42:50 AM EDT, Compound Start Date: 06/26/16 Status: Ordered Repeat number: 1 Problem List Condition Confirmation Course Effective Dates Status Health St atus Informant COVID-19 1 Confirmed 03/28/22 Active Exercise-induced asthma Confirmed Active TAMIKA, noncompliant with CPAP Confirmed Active Moderate obstructive sleep apnea Confirmed Active Chronic insomnia Confirmed Active Seasonal allergies Confirmed Active Severe obesity Confirmed Active 1Problem added by Discern Expert Social History Social History Type Response Smoking Status Never smoker entered on: 03/07/16 Sex Sex Representation Female (finding) Patient Care team information Care Team Personnel Name: Cherelle Whiteside NP Position: [facility] Associate Professional Member Role: Primary Care Nurse Name: Eduardo Cage MD Position: [facility] Physician - Primary Care Member Role: PCP Address: [address] [place] [address] [facility] [address] Telecom: Care Team Related Persons Name: MALINDA COLE Name: JAYSHREE COLE Name: SHAD BRICEÑO Insurance Providers Guarantor name: JAYSHREE BRICEÑO Health Plan Information #: 1 Payer: [facility] Member Number: NA Policy Number: NA Group Number: NA
--- OUTSIDE RECORDS SUMMARY | 2024-12-02 17:41 | XMS_ITS | Data Portability ---
Author Organization LISBETH Veronica matt [address] Address [address] [place] [address] Assessment No assessment recorded. Plan of Treatment Reminders Order Date Submit Date Provider Last Modified By Organization Details Last Modified Time Details Appointments None recorded. Lab None recorded. Referral None recorded. Procedures None recorded. Surgeries None recorded. Imaging None recorded. Medication Orders cephalexin 500 mg capsule 2022 023 [facility]/Pharmacy #[id number], [address] [place], [address], 3 12:44:05 ofloxacin 0.3 % eye drops 2022 023 [facility]/Pharmacy #[id number], [address] [place], [address], 3 12:44:05 Patient TargetsNo targets recorded. Patient Instructions Encounter Date Encounter Id Patient Instructions Last Modified By Organization Details Last Modified Time 02/08/2023 [id number] ophelia: care instructions [email or web address] Not available 02/08/2023 12:44:12 Reason for Referral None Reported. Problems Name Problem SNOMED Code Status Onset Date Resolution Date Notes Provider Name and Address Organization Details Recorded Time Anxiety 34064240 Active 023 LISBETH Nava [facility] 3 11:44:00 Insomnia 135793017 Active 023 LISBETH Nava [facility] 3 11:44:07 Problem Notes None recorded. Procedures Surgical History Date Name Laterality Status Provider Name and Address Organization Details Recorded Time tonsillectomy completed Kim Mai [facility] 02/08/2023 11:44:51 Imaging Results None recorded. Procedure [...] t Available Vitals Date Recorded Body weight Provider Name an d Address Organization Details Last Updated DateTime 02/08/2023 576955.47 g Kim Vernon [facility] 02/08/2023 11:45:26 Date Recorded Body mass index (BMI) Provider Name and Address Organization Details Last Updated DateTime 02/08/2023 40.2 kg/m2 Kim Vernon [place] - [facility] 0 02/08/2023 11:45:30 Date Recorded Body height Provider Name an d Address Organization Details Last Updated DateTime 02/08/2023 160.02 cm Kim Vernon [place] - [facility] 0 02/08/2023 11:45:31 Date Recorded Pain severity - 0-10 verbal numeric rating [Score] - Reported Provider Name and Address Organization Details Last Updated DateTime 02/08/2023 0 Kim Vernon PA - [facility] 0 02/08/2023 11:46:21 Date Recorded Oxygen saturation Oxygen saturation in Arterial blood by Pulse oximetry Provider Name and Address Organization Details Last Updated DateTime 02/08/2023 98 % 98 % Kim Vernon PA - [facility] 02/08/2023 11:46:25 Date Recorded Heart rate Provider Name an d Address Organization Details Last Updated DateTime 02/08/2023 60 /min Kim Vernon PA - [facility] 0 02/08/2023 11:46:39 Date Recorded Respiratory rate Provider Name a nd Address Organization Details Last Updated DateTime 02/08/2023 18 /min Kim Vernon PA - [facility] 0 02/08/2023 11:46:40 Date Recorded Body temperature Provider Name a nd Address Organization Details Last Updated DateTime 02/08/2023 98.7 [degF] Kim Vernon PA - [facility] 02/08/2023 11:46:55 Date Recorded Systolic blood pressure Diastolic blood pressure Provider Name and Address Organization Details Last Updated DateTime 02/08/2023 126 mm[Hg] 77 mm[Hg] Kim Vernon PA - [facility] 02/08/2023 11:46:35 Social History Question Answer Notes LastModified by Organizat ion Details LastModified Time Tobacco Smoking Status Never Smoker Kim Vernon nadir [place] - [facility] 02/08/2023 11:44:42 What Is Your Level Of Alcohol Consumption? Occasional Information not available 02/08/2023 Which Illicit Or Recreational Drugs Have You Used? Marijuanna [email or web address] Information not available 02/08/2023 Do You Use Any Illicit Or Recreational Drugs? Yes [email or web address] Information not available 02/08/2023 Do You Or Have You Ever Used Any Other Forms Of Tobacco Or Nicotine? No [email or web address] Information not available 02/08/2023 Sex: Unknown Functional Status None recorded. Mental Status None recorded. Family History Nothing Reported. Medical History No medical history recorded. Gynecological HistoryNo gynecological history recorded. Obstetrics History GPAL:G 0 P 0 0 0 0 Past Encounters Encounter ID Performer Location Encounter Start Date Encounter Closed Date Diagnosis/Indication Diagnosis SNOMED-CT Code Diagnosis ICD10 Code Diagnosis Note [id number] [address] [place] [address] 08/01/2018 14:41:23 08/01/2018 15:14:17 [id number] Catalina Young MD [address] [place] [place] [address] 02/08/2023 11:25:19 02/08/2023 12:49:23 Internal hordeolum of upper eyelid 784548907 H00.029 Please follow up with PCP or Urgent Care in 3-5 days if no improvemen t or if any new symptoms occur that are concerning .Call 911 or go to nearest ER if you develop any shortness of breath, chest pain, severe headache, dizziness, or other concerning symptoms Health Concerns Section Related Observation LastModified by Organization Detai ls LastModified Time None Recorded Concern Status LastModified by Organization Details LastModified Time None Recorded Advance Directives Directive None Recorded Payers Encounter Date Sequence Insurance Name Policy Number Policy Greer Covered Member ID Greer Member ID Guarantor Name 08/01/2018 1 [facility] PL[facility] (MEDICAID HMO) SARABJIT Fermin Salcido [id number] Nicole Fermin 02/08/2023 1 [facility] PLAN (MEDICAID HMO) SARABJIT Riveraon [id number] Nicole Fermin Notes Date Note Type Note Provider Name and Address Organization Details Recorded Time 02/08/2023 text/html Eye problemsRepo rted bypatient.Location:[facility] Eye Symptoms:redness;disc harge Onset/Timindays Catalina Young MD [address] [place], [address], [place] - [facility] 02/08/2023 13:04:09 OBGyn Episode No OBEpisode recorded.
== END 2024-12-02 17:05 | disposition home or self-care (01) ==
LOC: HO.HMCFM 15:19
PROVIDERS: PCP Nurse Practitioner Family; Visit Provider Nurse Practitioner Family
DX: E66.01 Morbid (severe) obesity due to excess calories (principal); Z68.41 Body mass index [BMI] 40.0-44.9, adult

== ENCOUNTER → 2024-12-02 15:19 | Outpatient (BNVA) | payer OTHER, SELFPAY | PROVIDERS: PCP Nurse Practitioner Family; Visit Provider Nurse Practitioner Family ==

== ENCOUNTER 2025-02-26 09:05 | Outpatient (AMB) | payer OTHER, SELFPAY ==
--- NOTE | 2025-02-26 09:13 | MHC.PC.OV ---
Vital Signs 02/26/25 09:17 Height 5 ft 2 in Weight 242 lb BMI 44.3 BP 124/72 Blood Pressure Location Rt brachial Position Sitting Respiration 12 Pulse 70 Pulse Source Pulse Oximeter Temp 97.6 F Temp Source Oral Pulse Oximetry (%) 97 Oxygen Delivery Method Room Air Intake Visit Reasons: check for diabetes Intake Note: follow up on diabetes Customer Assistant Required: No Allergies pollen extracts [POLLEN] Allergy (Unknown, Verified 02/26/25 09:42) RUNNY NOSE Medication List - Last Reconciled 02/26/25 by NABIL WalshP- cholecalciferol (vitamin D3) 125 mcg PO DAILY 90 days hydroxyzine HCl 25 mg PO BEDTIME thiamine HCl (vitamin B1) 100 mg PO DAILY Tobacco use date assessed: 02/26/25 Dental Screening Dental Screen Date: 02/26/25 Did you have a dental visit in the last 12 months?: Yes Did you have a dental problem in the last 6 months where you did not have access to dental care?: No Was dental information given to patient?: Patient has dentist HPI HPI Comments History of Present Illness Details 34 y/o F with morbid obestiy, MDD, MEREDITH, Vit D def Health Maintenance: 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 - She reports symptoms including fatigue, blurry vision, constant thirst, headaches, and intermittent dizziness upon waking. - The patient has a family history of diabetes mellitus and morbid obesity is identified as a risk factor. - Previous labs have not indicated the presence of diabetes. - Notably, she experiences significant snoring, raising a suspicion of sleep apnea, although she has not undergone sleep studies. - She experiences anxiety which affects her eating habits, leading her to overeat. - She discontinued hydroxyzine due to its side effects and is currently on vitamin D supplementation. Was Rx B1 but stopped taking. Physical Exam General: Well developed, well nourished, in no acute distress. Appears stated age. Morbidly obese. Head: Normocephalic, atraumatic. Eyes: Pupils are equal, round and reactive to light and accommodation. Conjunctivae are clear. Lungs: Clear to auscultation bilaterally. No rales, rhonchi or wheeze noted. Good air flow in all villaseñor. Heart: Regular rate and rhythm. No murmurs, click, rubs or gallops are noted. Psych: Mood and affect appropriate Results - Labs: Hemoglobin A1c was 5.2%, indicating no evidence of diabetes mellitus. Discussion Notes I discussed with the patient that there is currently no evidence of diabetes, as her A1c level is 5.2%, well below the threshold. Despite her family history of diabetes and the presence of symptoms that could suggest diabetes, current labs have not demonstrated any trend towards diabetes. We explored her report of consistent symptoms like fatigue, blurry vision, and snoring, which might indicate sleep apnea. I suggested conducting a sleep study, explaining its importance in identifying and treating sleep apnea, which could alleviate many of her concerns including fatigue. We also discussed the potential for medication assistance for weight loss and anxiety, with plans to monitor lab results and evaluate her condition further based on these findings. I advised follow-up in two weeks to discuss lab results and potential treatment options, and assured her that any critical findings would be communicated sooner. Assessment and Plan 1. Morbid Obesity The patient continues to struggle with weight due to anxiety-related eating habits. We plan to review lab results and potentially initiate therapy affecting weight and mood. I encouraged further diet modification and physical activity in conjunction with professional guidance. Consider Wellbutrin or Metformin. 2. Family history of Diabetes Mellitus Current lab results do not show diabetes; however, vigilance with lifestyle modification and periodic monitoring of A1c will be maintained. 3. Anxiety The impact on her weight management is notable. Medication options addressing both weight and anxiety were discussed, with further evaluation to be performed pending lab results. 4. Suspected Obstructive Sleep Apnea Due to significant snoring and associated symptoms, a sleep study was ordered. Confirmative results will guide further intervention. 5. Vitamin D She will continue supplementation, and we plan to recheck levels during her follow-up. Patient Instructions - Get a sleep study to check for sleep apnea. - Continue taking vitamin D supplements as directed. - Follow up with lab work as soon as possible. - Schedule follow-up appointment for two weeks from today for lab review & discuss med start. - Consider the adherence to a balanced diet and active lifestyle to aid weight management. - Discuss with a healthcare provider before starting any new medications. Consent Patient was informed and verbally consented to the use of an ambient scribe for clinic note documentation during this visit. Total time spent caring for the patient today was 30 minutes. This includes time spent before the visit reviewing the chart, time spent during the visit, and time spent after the visit on documentation, reviewing laboratory results, diagnostic imaging, medications, performing a medically necessary evaluation, counseling on diagnoses, care coordination, ordering appropriate tests, ordering appropriate medications, review of tests performed by other providers, reporting test results with the patient, communication with other healthcare providers. [facility] Surgical History H/O section History of tonsillectomy Family History Other FH: mental illness Substance use Social History Housing: House ([facility] house) Patient Tobacco Use Status: Former Tobacco user e-Cigarette/Vaping Use: Currently Using Second Hand Smoke Exposure: No Substance Use Type: Marijuana service: No Current occupational status: employed Current occupation: [employer] Current occupational exposures/hazards: No Cognitive needs: No Hearing needs: No Vision needs: Yes (Glasses/contacts) Questionnaire PHQ-9 Over the last 2 weeks, how often have you been bothered by any of the following problems? 1. Little interest or pleasure in doing things: not at all 2. Feeling down, depressed, or hopeless: not at all 3. Trouble falling or staying asleep, or sleeping too much: not at all 4. Feeling tired or having little energy: not at all 5. Poor appetite or overeating: not at all 6. Feeling bad about yourself - or that you are a failure or have let yourself or your family down: not at all 7. Trouble concentrating on things, such as reading the newspaper or watching television: not at all 8. Moving or speaking so slowly that other people could have noticed. Or the opposite - being so fidgety or restless that you have been moving around a lot more than usual: not at all 9. Thoughts that you would be better off or of hurting yourself in some way: not at all Total score: 0 Depression Screening Interpretation: Negative Depression Screening Done: Yes 38692 - PHQ-9 Billing: Yes Source: Developed by Drs. Chidi L. PamMarbella huang, Truong Byrne and colleagues, with an educational melchor from [employer]. Thrive Questionnaire Date Thrive assessed: 02/26/25 I am a: Patient What is your living situation today?: I have a steady place to live Within the past 12 months, did the food you bought not last and you didn't have the money to get more?: Never true Within the past 12 months, did you worry whether your food would run out before you got money to buy more?: Never true Do you have trouble paying for medicines?: No Do you have trouble getting transportation to medical appointments?: No Do you have trouble paying your heating and electricity bill?: No Do you have trouble taking care of your child, family member or friend?: No Do you have trouble with day-to-day activities such as bathing, preparing meals, shopping, managing finances, etc.?: No Are you currently unemployed and looking for a job?: No Are you interested in more education?: No THRIVE Score: 0 MEREDITH-7 AMB Questionnaire MEREDITH-7 Date MEREDITH - 7 assessed: 02/26/25 Feeling nervous, anxious, or on edge: 0 = Not at all Not being able to stop or control worryin = Not at all Worrying too much about different things: 0 = Not at all Trouble relaxin = Not at all Being so restless that it is hard to sit still: 0 = Not at all Becoming easily annoyed or irritable: 0 = Not at all Feeling afraid as if something awful might happen: 0 = Not at all Total MEREDITH-7 score (0-4 normal; 5-9 mild; 10-14 moderate; 15-21 severe): 0 Source: Developed by Marbella Sanz, Truong Byrne and colleagues, with an educational melchor from [employer]. MEREDITH-7 Assessment Billing MEREDITH-7 Assessment Tool: MEREDITH-7 Assessment 42668 Physical exam (Primary Care) Vital Signs: Last Vital Signs Temp 97.6 F 02/26/25 09:17 Pulse 70 02/26/25 09:17 Resp 12 02/26/25 09:17 BP 124/72 02/26/25 09:17 Pulse Ox 97 02/26/25 09:17 Oxygen Delivery Method Room Air 02/26/25 09:17 BMI result Body Mass Index 44.3 BMI Assessment/Plan discussion: High BMI High, discussed plan: lifestyle Tobacco/Smoking Status: Tobacco use Status Tobacco use date assessed 02/26/25 02/26/25 09:16 Patient Tobacco Use Status Former Tobacco user 02/26/25 09:13 e-Cigarette/Vaping Use Currently Using 02/26/25 09:13 PHQ-9: PHQ-9 Score PHQ-9: Total score 0 02/26/25 09:48 Depression Screening Interpretation: Negative Thrive Assessment: Date of Thrive Assessment Date Thrive assessed 02/26/25 02/26/25 09:16 Results AMB Hemoglobin A1c AMB Hemoglobin A1c 5.2 % Last Edit by Meche Lau MA on 02/26/25 09:30 Results Reviewed Results Reviewed: Laboratory Last Values Hgb A1c (Clinic) 5.2 % (4.0-6.0) 02/26/25 09:11 Coding Level of Care Code Est Pt Level 4 (88032) Complex EM visit Add On G2211 Diagnoses Morbid obesity with BMI of 40.0-44.9, adult E66.01; Z68.41 Snoring R06.83 Hypersomnia G47.10 Vitamin D deficiency E55.9 MEREDITH (generalized anxiety disorder) F41.1 Mild episode of recurrent major depressive disorder F33.0 Major depression episode severity: mild Additional Codes MEREDITH-7 Assessment Billing - MEREDITH-7 Assessment Tool: MEREDITH-7 Assessment 50469 ([id number]) PHQ-9 - 02727 - PHQ-9 Billing: Yes ([id number]) Assessment & Plan Assessment & Plan (1) Morbid obesity with BMI of 40.0-44.9, adult: Code(s): E66.01 - Morbid (severe) obesity due to excess calories; Z68.41 - Body mass index [BMI] 40.0-44.9, adult Category: Medical (2) Snoring: Code(s): R06.83 - Snoring Category: Medical (3) Hypersomnia: Code(s): G47.10 - Hypersomnia, unspecified Category: Medical (4) Vitamin D deficiency: Code(s): E55.9 - Vitamin D deficiency, unspecified Category: Medical (5) MEREDITH (generalized anxiety disorder): Code(s): F41.1 - Generalized anxiety disorder Category: Medical (6) MDD (major depressive disorder), recurrent episode: Code(s): F33.9 - Major depressive disorder, recurrent, unspecified Category: Medical Qualifiers: Major depression episode severity: mild Qualified Code(s): F33.0 - Major depressive disorder, recurrent, mild Plan . Orders: Orders RT home sleep study Today E66.01 - Morbid (severe) obesity due to excess calories, G47.10 - Hypersomnia, unspecified, R06.83 - Snoring, Z68.41 - Body mass index [BMI] 40.0-44.9, adult Vitamin D 25-OH Total Today E55.9 - Vitamin D deficiency, unspecified, E66.01 - Morbid (severe) obesity due to excess calories, Z68.41 - Body mass index [BMI] 40.0-44.9, adult Comprehensive Met. Panel Today E55.9 - Vitamin D deficiency, unspecified, E66.01 - Morbid (severe) obesity due to excess calories, Z68.41 - Body mass index [BMI] 40.0-44.9, adult AMB Hemoglobin A1c Today Z13.9 - Encounter for screening, unspecified Ferritin Today E55.9 - Vitamin D deficiency, unspecified, E66.01 - Morbid (severe) obesity due to excess calories, Z68.41 - Body mass index [BMI] 40.0-44.9, adult TSH reflex Free T4 Today E55.9 - Vitamin D deficiency, unspecified, E66.01 - Morbid (severe) obesity due to excess calories, Z68.41 - Body mass index [BMI] 40.0-44.9, adult Medications: Discontinued thiamine HCl (vitamin B1) Discontinued Reason: Patient no longer taking 100 mg PO DAILY 90 tabs 0RF
[2025-02-26 09:17] VITALS: BP 124/72; PULSE 70; RESP 12; TEMP 36.4; O2SAT 97; BMI 44.3
--- OUTSIDE RECORDS SUMMARY | 2025-02-26 09:32 | XMS_ITS | Data Portability ---
Author Organization LISBETH Veronica matt [address] Address [address] [place] [address] Assessment No assessment recorded. Plan of Treatment Reminders Order Date Submit Date Provider Last Modified By Organization Details Last Modified Time Details Appointments None recorded. Lab None recorded. Referral None recorded. Procedures None recorded. Surgeries None recorded. Imaging None recorded. Medication Orders cephalexin 500 mg capsule 20[address] [facility]/Pharmacy #[id number], [address] [place], [address], 3 12:44:05 ofloxacin 0.3 % eye drops 2022 [address] [facility]/Pharmacy #[id number], [address] [place], [address], 3 12:44:05 Patient TargetsNo targets recorded. Patient Instructions Encounter Date Encounter Id Patient Instructions Last Modified By Organization Details Last Modified Time 02/08/2023 [id number] ophelia: care instructions [email or web address] Not available 02/08/2023 12:44:12 Reason for Referral None Reported. Problems Name Problem SNOMED Code Status Onset Date Resolution Date Notes Provider Name and Address Organization Details Recorded Time Anxiety 99252925 Active 023 LISBETH Nava [facility] 3 11:44:00 Insomnia 508258685 Active 023 LISBETH Nava [facility] 3 11:44:07 [...] weight Body mass index (BMI) Body height Pain severity - 0-10 verbal numeric rating [Score] - Reported Oxygen saturation Oxygen saturation in Arterial blood by Pulse oximetry Heart rate Respiratory rate Body temperature Systolic blood pressure Diastolic blood pressure Provider Name and Address Organization Details Last Updated DateTime 3 242839. 47 g 40.2 kg/m2 160.02 cm 0 98 % 98 % 60 /min 18 /min 98.7 [degF] 126 mm[Hg] 77 mm[Hg] Kim Riddle [facility] 3 11:46:35 Social History Question Answer Notes LastModified by Organizat ion Details LastModified Time Tobacco Smoking Status Never Smoker LISBETH Nava [facility] 02/08/2023 11:44:42 What Is Your Level Of Alcohol Consumption? Occasional Information not available 02/08/2023 Which Illicit Or Recreational Drugs Have You Used? Kelvin [email or web address] Information not available 02/08/2023 Do You Use Any Illicit Or Recreational Drugs? Yes Information not available 02/08/2023 Do You Or Have You Ever Used Any Other Forms Of Tobacco Or Nicotine? No [email or web address] Information not available 02/08/2023 Sex: Unknown Functional Status None recorded. Mental Status None recorded. Family History Nothing Reported. Medical History No medical history recorded. Gynecological HistoryNo gynecological history recorded. Obstetrics History GPAL:G 0 P 0 0 0 0 Past Encounters Encounter ID Performer Location Encounter Start Date Encounter Closed Date Diagnosis/Indication Diagnosis SNOMED-CT Code Diagnosis ICD10 Code Diagnosis Note [id number] [address] [address] [place] [address] 08/01/2018 14:41:23 08/01/2018 15:14:17 [id number] Catalina Young MD [address] [place] [address] 02/08/2023 11:25:19 02/08/2023 12:49:23 Internal hordeolum of upper eyelid [id number] H00.029 Please follow up with PCP or [...] Greer Member ID Guarantor Name 08/01/2018 1 [facility] PLAN (MEDICAID HMO) SARABJIT Salcido [id number] Nicole Fermin 02/08/2023 1 [facility] PLAN (MEDICAID HMO) SARABJIT Salcido [id number] Nicole Fermin Notes Date Note Type Note Provider Name and Address Organization Details Recorded Time 02/08/2023 text/html Eye problemsRepo rted bypatient.Location:[facility] Eye Symptoms:redness;disc harge Onset/Timindays Catalina Young MD [address] [place], [address], [place] - [facility] 02/08/2023 13:04:09 OBGyn Episode No OBEpisode recorded.
--- OUTSIDE RECORDS SUMMARY | 2025-02-26 09:32 | XMS_ITS | Clinical Summary ---
Author Organization [facility] Address [address] [place] [address] Care Team Providers Care Sports Management Intern Name Role Phone Fabián Mcarthur MD Primary Care Provider Allergies No known active allergies Active Problems Problem Noted Date Diagnosed Date Asthma 11/01/2024 Marijuana use 06/04/2017 Overview (11/01/2024): + at IP Anxiety 06/03/2017 Overview (11/01/2024): Very anxious, [place] for depression =21, referred to [facility], appointment made for 06/12/17 Surgical History Surgery Date Site/Laterality Comments SECTION 2011 PROCEDURE: HISTORICAL DELIVERY TONSILLECTOMY PROCEDURE: HISTORICAL TONSILLECTOMY; COMMENT: age 9 OTHER SURGICAL HISTORY 2013 PROCEDURE: [place] DILATION & CURETTAGE DX&/THER NONOBSTETRIC; COMMENT: D&E for 20 week IUFD Medical History Medical History Date Comments Asthma DX:Asthma Anxiety DX:Anxiety Marijuana use 06/04/2017 DX:Marijuana use ; COMMENT: + at IP Family History Medical History Relation Name Comments Diabetes Maternal Grandmother Lung cancer Maternal Grandmother 2 ppd s moker Mental illness Mother Schizophrenia Mother Relation Name Status Comments Maternal Grandmother Mother Alive Social History Tobacco Use Types Packs/Day Years Used Date Smoking Tobacco: Never Smokeless Tobacco: Never Alcohol Use Standard Drinks/Week Comments Yes 2 (1 standard drink = 0.6 oz pur e alcohol) Comments Unknown Sex and Gender Information Value Date Recorded Sex Assigned at Not on file Legal Sex Female 6:18 PM EST Gender Identity Not on file Sexual Orientation Not on file Obstetrics History Last Filed Vital Signs Vital Sign Reading Time Taken Comments Blood Pressure 122/77 10/26/2022 4:51 PM EST a Pulse 71 10/26/2022 4:51 PM EST Temperature - - Respiratory Rate - - Oxygen Saturation - - Inhaled Oxygen Concentration - - Weight 102 kg (224 lb) 10/26/2022 3:53 PM EST Height 160 cm (5' 3 ) 10/26/2022 3:53 PM EST Body Mass Index 39.68 10/26/2022 3:53 PM EST Plan of Treatment Health Maintenance Due Date Last Done Comments Hepatitis B Vaccines (1 of 3 - 19+ 3-dose series) 2011 Pneumococcal Vaccine: Pediatrics (0 to 5 Years) and At-Risk Patients (6 to 64 Years) (1 of 2 - PCV) 2011 Cervical Cancer Screening: P ap Smear 06/12/2020 06/12/2017, 06/12/2017 Depression Screening 10/13/2022 Hepatitis C Screening 10/13/2022 Social Influencers of Health Screening 10/13/2022 COVID-19 Vaccine (1 - 2023-2 5 season) 2024 Influenza Vaccine (Season Ended) 2025 10/26/2022, 10/23/2017 DTaP,Tdap,and Td Vaccines (2 - Td or Tdap) 12/25/2027 12/25/2017 HIV Screening Completed 06/03/2017 HIB Vaccines Aged Out No longer eligi ble based on patient's age to complete this topic HPV Vaccines Aged Out No longer eligi ble based on patient's age to complete this topic Hepatitis A Vaccines Aged Out No long er eligible based on patient's age to complete this topic IPV Vaccines Aged Out No longer eligi ble based on patient's age to complete this topic MMR Vaccines Aged Out No longer eligi ble based on patient's age to complete this topic Meningococcal ACWY Vaccine Aged Out N o longer eligible based on patient's age to complete this topic Meningococcal B Vaccine Aged Out No l onger eligible based on patient's age to complete this topic RSV Immunization Patients Under 20 months Aged Out No longer eligible b ased on patient's age to complete this topic Varicella Vaccines Aged Out No longer eligible based on patient's age to complete this topic Procedures Procedure Name Priority Date/Time Associated Diagnosis Comments HPV Routine 06/12/2017 HIV SCREENING Routine 06/03/2017 from Last 3 Months or Most Recently Relevant to Health Maintenance Results * Cervical Cancer Screening: HPV (06/12/2017) Cervical Cancer Screening: HPV abstracted, no interpretation Historical Provider HEALTH MAINTENANCE Final Result * HIV Screening (06/03/2017) HIV Screening abstracted Historical Provider HEALTH MAINTENANCE Final Result from Last 3 Months or Most Recently Relevant to Health Maintenance Care Teams Sports Management Intern Relationship Specialty Start Date End Date Fabián Mcarthur MD [address] [place] [address] PCP - General 10/26/22
== END 2025-02-26 09:53 | disposition home or self-care (01) ==
LOC: HO.HMCFM 09:06
PROVIDERS: PCP Nurse Practitioner Family; Visit Provider Nurse Practitioner Family
DX: R06.83 Snoring (principal); E66.01 Morbid (severe) obesity due to excess calories; Z68.41 Body mass index [BMI] 40.0-44.9, adult; F33.0 Major depressive disorder, recurrent, mild; G47.10 Hypersomnia, unspecified; E55.9 Vitamin D deficiency, unspecified; F41.1 Generalized anxiety disorder

== ENCOUNTER → 2025-02-26 09:05 | Outpatient (BNVA) | payer OTHER, SELFPAY | PROVIDERS: PCP Nurse Practitioner Family; Visit Provider Nurse Practitioner Family | DX: E66.01 Morbid (severe) obesity due to excess calories (principal); Z68.41 Body mass index [BMI] 40.0-44.9, adult; R06.83 Snoring; G47.10 Hypersomnia, unspecified; E55.9 Vitamin D deficiency, unspecified; F41.1 Generalized anxiety disorder; F33.0 Major depressive disorder, recurrent, mild | CPT/HCPCS: 83036; 96127; 99212 ==

== ENCOUNTER 2025-02-26 09:58 | Outpatient (REF) | payer OTHER, SELFPAY ==
--- OUTSIDE RECORDS SUMMARY | 2025-02-26 10:44 | XMS_ITS | Clinical Summary ---
Author Organization [facility] Address [address] [place] [address] Care Team Providers Care Car Scrubber Name Role Phone Fabián Mcarthur MD Primary Care Provider Allergies No known active allergies Active Problems Problem Noted Date Diagnosed Date Asthma 11/01/2024 Marijuana use 06/04/2017 Overview (11/01/2024): + at IP Anxiety 06/03/2017 Overview (11/01/2024): Very anxious, [place] for depression =21, referred to [facility], appointment made for 06/12/17 Surgical History Surgery Date Site/Laterality Comments SECTION 2011 PROCEDURE: HISTORICAL DELIVERY TONSILLECTOMY PROCEDURE: HISTORICAL TONSILLECTOMY; COMMENT: age 9 OTHER SURGICAL HISTORY 2013 PROCEDURE: [place] DILATION & CURETTAGE DX&/THER NONOBSTETRIC; COMMENT: D&E [...] Recently Relevant to Health Maintenance Care Teams Car Scrubber Relationship Specialty Start Date End Date Fabián Mcarthur MD [address] [place] [address] PCP - General 10/26/22
[2025-02-26 12:02] LABS: Alanine Aminotransferase 19 U/L (0-31); Anion Gap 11 (12-20); Aspartate Amino Transferase 17 U/L (5-31); Bilirubin Total 0.3 mg/dL (0.0-1.0); Blood Urea Nitrogen 9 mg/dL (9-16); Calcium 8.6 mg/dL (8.4-10.2); Carbon Dioxide 25 mmol/L (22-29); Chloride 107 mmol/L (96-108); Estimated Glomerular Filt Rate > 60; Glucose Random 91 mg/dL (60-115); Potassium 3.9 mmol/L (3.3-5.1); Sodium 139 mmol/L (135-145); Total Protein 7.3 g/dL (6.5-8.0)
[2025-02-26 12:05] LABS: Ferritin 30 ng/mL (10-122); TSH reflex Free T4 0.82 uIU/mL (0.32-4.0); Vitamin D 25-OH Total 32.1 ng/mL (>30)
[2025-02-26 19:44] LABS: Alkaline Phosphatase 42 U/L (39-117)
== END 2025-02-26 09:59 | disposition home or self-care (01) ==
LOC: HO.WFDLDS 09:58
PROVIDERS: Visit Provider Nurse Practitioner Family
DX: E66.01 Morbid (severe) obesity due to excess calories (principal); Z68.41 Body mass index [BMI] 40.0-44.9, adult; E55.9 Vitamin D deficiency, unspecified
CPT/HCPCS: 36415; 80053; 82306; 82728; 84443

== ENCOUNTER 2025-03-12 13:33 | Outpatient (AMB) | payer OTHER, SELFPAY ==
--- NOTE | 2025-03-12 13:41 | MHC.PC.OV ---
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 - She has a pre-existing condition of anxiety, which she believes affects her weight management efforts. - She is keen to lose weight but has faced difficulties, partly due to increased anxiety from previous weight-tracking experiences. - The patient has sleep apnea concerns for which a sleep study is planned, albeit delayed until May. - Heightened anxiety levels when monitoring weight have discouraged surgical options, aiming to adopt medication-based intervention for mood and weight instead. - The concern about diabetes has been assuaged with recent normal lab results. - She has a history of vitamin D deficiency, managed with supplementation. - Recently conducted labs showed that ferritin and vitamin D levels are on the low side of normal. - Consideration for pharmacologic therapy includes prescribing Wellbutrin or metformin for management of obesity and mood stabilization. Assessment and Plan 1. Anxiety Anxiety will be managed with Bupropion (Wellbutrin) 150 mg once daily in the morning for its mood stabilization effect while promoting weight loss. As the patient starts at the lowest dose, monitoring for side effects and efficacy will be a priority with a scheduled follow-up in 8 weeks. 2. Weight Management Bupropion serves a dual purpose of addressing both mood and weight concerns. The patient will be informed to weigh herself only on the follow-up appointment day to prevent anxiety from frequent monitoring. 3. Sleep Apnea Suspect Despite the delayed sleep study, proactive steps, including remaining on the waitlist and contacting the facility, are suggested. Results will align with the Bupropion follow-up. 4. Vitamin Deficiency & low Ferritin: To counteract suspected vitamin deficiency, the patient is advised to start a multivitamin with iron, with options for [id number] choices discussed in case of insurance denial & cont Vit d supplement, refill sent. FU in about 8 weeks to review sleep study results and effects of meds, sooner PRN Telehealth Attestation This visit was conducted via telehealth with patient consent. Documentation was completed accurately based on the conversation and clinical exchange during the virtual visit. I attest that this visit was conducted via telehealth, and that all pertinent information was documented accurately and comprehensively based on the information provided during this remote session. The patient has been explained that this is an interactive (audio/video) telehealth encounter and what that consists of. The patient understands and wishes to proceed. [email or web address] platform was used. Total time spent caring for the patient today was 18 minutes. This includes time spent before the visit reviewing the chart, time spent during the visit, and time spent after the visit on documentation, reviewing laboratory results, diagnostic imaging, medications, performing a medically necessary evaluation, counseling on diagnoses, care coordination, ordering appropriate tests, ordering appropriate medications, review of tests performed by other providers, reporting test results with the patient, communication with other healthcare providers. [facility] Surgical History H/O section History of tonsillectomy Family History Other FH: mental illness Substance use Social History Housing: House (Town house) Patient Tobacco Use Status: Former Tobacco user e-Cigarette/Vaping Use: Currently Using Second Hand Smoke Exposure: No Substance Use Type: Marijuana service: No Current occupational status: employed Current occupation: [employer] Current occupational exposures/hazards: No Cognitive needs: No Hearing needs: No Vision needs: Yes (Glasses/contacts) Questionnaire Thrive Questionnaire Date Thrive assessed: 02/26/25 MEREDITH-7 AMB Questionnaire MEREDITH-7 Date MEREDITH - 7 assessed: 02/26/25 Source: Developed by Drs. Chidi Orozco, Marbella Kearney, Truong Byrne and colleagues, with an educational melchor from [employer]. Physical exam (Primary Care) Tobacco/Smoking Status: Tobacco use Status Tobacco use date assessed 02/26/25 03/12/25 13:43 Patient Tobacco Use Status Former Tobacco user 03/12/25 13:43 e-Cigarette/Vaping Use Currently Using 03/12/25 13:43 Thrive Assessment: Date of Thrive Assessment Date Thrive assessed 02/26/25 03/12/25 13:43 Telehealth Telehealth Telehealth Platform: [facility] Location of provider rendering services: practice address Location of patient: address on file Patient Identification confirmed using: Name, : Yes Telehealth method: voice only Patient verbally consented to treatment: Yes Patient verbally consented to billing insurance company: Yes Patient informed of any privacy concerns related to visit: Yes Minutes spent on Phone/Video with Pt.: 11 Coding Level of Care Code Tele Est Pt Level 3 (61011) Complex EM visit Add On G2211 Diagnoses MEREDITH (generalized anxiety disorder) F41.1 Mild episode of recurrent major depressive disorder F33.0 Major depression episode severity: mild Morbid obesity with BMI of 40.0-44.9, adult E66.01; Z68.41 Vitamin D deficiency E55.9 Mild anemia D64.9 Assessment & Plan Assessment & Plan (1) MEREDITH (generalized anxiety disorder): Code(s): F41.1 - Generalized anxiety disorder Category: Medical (2) MDD (major depressive disorder), recurrent episode: Code(s): F33.9 - Major depressive disorder, recurrent, unspecified Category: Medical Qualifiers: Major depression episode severity: mild Qualified Code(s): F33.0 - Major depressive disorder, recurrent, mild (3) Morbid obesity with BMI of 40.0-44.9, adult: Code(s): E66.01 - Morbid (severe) obesity due to excess calories; Z68.41 - Body mass index [BMI] 40.0-44.9, adult Category: Medical (4) Vitamin D deficiency: Code(s): E55.9 - Vitamin D deficiency, unspecified Category: Medical (5) Mild anemia: Code(s): D64.9 - Anemia, unspecified Category: Medical Plan . Medications: New multivitamin with iron 1 tab PO DAILY 90 tabs 2RF bupropion HCl XL (Wellbutrin XL) 150 mg PO QAM 90 tabs 0RF Refilled cholecalciferol (vitamin D3) 125 mcg PO DAILY 90 caps 1RF 90 days
--- OUTSIDE RECORDS SUMMARY | 2025-03-12 13:48 | XMS_ITS | Data Portability ---
Author Organization [facility] Maternal Medicine, MIGUEL_GHULAM OBGYKenyetta (ProfSeamus) Address [address], [address] [place] [address] Assessment No assessment recorded. Plan of Treatment [...] SNOMED-CT Code Diagnosis ICD10 Code Diagnosis Note [id number] Saul Luu MD [address] [address] 09/10/2017 11:29:20 09/10/2017 12:29:32 [id number] Saul Luu MD [address] [address] 10/17/2017 11:18:29 10/17/2017 11:18:47 [id number] Saul Luu MD [facility] [address] [place] [address] 01/13/2018 10:32:37 01/13/2018 10:32:47 [id number] Saul Luu MD [facility] [address] [place] [address] 01/14/2018 14:52:07 01/14/2018 14:53:31 Health Concerns Section Related Observation LastModified by Organization Detai ls LastModified Time None Recorded Concern Status LastModified by Organization Details LastModified Time None Recorded Advance Directives Directive None Recorded Payers Encounter Date Sequence Insurance Name Policy Number Policy Greer Covered Member ID Greer Member ID Guarantor Name 09/10/2017 1 [facility] [employer] - TOGETHER (MEDICAID HMO) Nicole Fermin [id number] Nicole Fermin 10/15/2017 1 [facility] [employer] - TOGETHER (MEDICAID HMO) Nicole Fermin [id number] Nicole Fermin 01/10/2018 1 [facility] [id number] Nicole Fermin [id number] Nicole Fermin 01/14/2018 1 [facility] [id number] Nicole Fermin [id number] Nicole Fermin OBGyn Episode No OBEpisode recorded.
--- OUTSIDE RECORDS SUMMARY | 2025-03-12 13:48 | XMS_ITS | Data Portability ---
Author Organization LISBETH Veronica matt [address] Address [address] [place] [address] Assessment No assessment recorded. Plan of Treatment Reminders Order Date Submit Date Provider Last Modified By Organization Details Last Modified Time Details Appointments None recorded. Lab None recorded. Referral None recorded. Procedures None recorded. Surgeries None recorded. Imaging None recorded. Medication Orders cephalexin 500 mg capsule 2022 023 [facility] #[id number], [address] [place], [address], 3 12:44:05 ofloxacin 0.3 % eye drops 2022 023 [facility] #[id number], [address] [place], [address], 3 12:44:05 Patient TargetsNo targets recorded. Patient Instructions Encounter Date Encounter Id Patient Instructions Last Modified By Organization Details Last Modified Time 02/08/2023 [id number] [email or web address]: care instructions [email or web address] Not available 02/08/2023 12:44:12 Reason for Referral None Reported. Problems Name Problem SNOMED Code Status Onset Date Resolution Date Notes Provider Name and Address Organization Details Recorded Time Anxiety 58382858 Active 023 [facility]IS[facility] N[facility] 3 11:44:00 Insomnia 095484908 Active 023 LISBETH Nava [facility] 3 11:44:07 [...] Address Organization Details Last Updated DateTime 3 574471. 47 g 40.2 kg/m2 160.02 cm 0 98 % 98 % 60 /min 18 /min 98.7 [degF] 126 mm[Hg] 77 mm[Hg] Kim Riddle [facility] 3 11:46:35 Social History Question Answer Notes LastModified by Organizat ion Details LastModified Time Tobacco Smoking Status Never Smoker [facility] 02/08/2023 11:44:42 What Is Your Level Of Alcohol Consumption? Occasional [email or web address] Information not available 02/08/2023 Which Illicit Or Recreational Drugs Have You Used? Kelvin [email or web address] Information not available 02/08/2023 Do You Use Any Illicit Or Recreational Drugs? Yes [email or web address] Information not available 02/08/2023 Do You Or Have You Ever Used Any Other Forms Of Tobacco Or Nicotine? No [email or web address] Information not available 02/08/2023 Sex: Unknown Functional Status None recorded. Mental Status None recorded. Family History Nothing Reported. Medical History No medical history recorded. Gynecological HistoryNo gynecological history recorded. Obstetrics History GPAL:G 0 P 0 0 0 0 Past Encounters Encounter ID Performer Location Encounter Start Date Encounter Closed Date Diagnosis/Indication Diagnosis SNOMED-CT Code Diagnosis ICD10 Code Diagnosis Note [id number] [address] [facility] [address] [place] [address] 08/01/2018 14:41:23 08/01/2018 15:14:17 [id number] Catalina Young [place] [address] [place] [address] 02/08/2023 11:25:19 02/08/2023 12:49:23 Internal hordeolum of upper eyelid [id number] H00.029 Please follow up with PCP or [...] Greer Member ID Guarantor Name 08/01/2018 1 [facility] NET PLAN (MEDICAID HMO) SARABJIT Salcido [id number] Nicole Fermin 02/08/2023 1 [facility] PLAN (MEDICAID HMO) [id number] Salcido [id number] Nicole Fermin Notes Date Note Type Note Provider Name and Address Organization Details Recorded Time 02/08/2023 text/html Eye problemsRepo rted bypatient.Location:[facility] Eye Symptoms:redness;disc harge Onset/Timindays Catalina Young MD [address] [place], [address], [place] - [facility] 02/08/2023 13:04:09 OBGyn Episode No OBEpisode recorded.
--- OUTSIDE RECORDS SUMMARY | 2025-03-12 13:48 | XMS_ITS | Clinical Summary ---
Author Organization [facility] Address [address] [place] [address] Care Team Providers Care Control Engineer Name Role Phone Fabián Mcarthur MD Primary Care Provider Allergies No known active allergies Active Problems Problem Noted Date Diagnosed Date Asthma 11/01/2024 Marijuana use 06/04/2017 Overview (11/01/2024): + at IP Anxiety 06/03/2017 Overview (11/01/2024): Very anxious, [place] for depression =21, referred to [facility], appointment made for 06/12/17 Surgical History Surgery Date Site/Laterality Comments SECTION 2011 PROCEDURE: HISTORICAL DELIVERY TONSILLECTOMY PROCEDURE: HISTORICAL TONSILLECTOMY; COMMENT: age 9 OTHER SURGICAL HISTORY 2013 PROCEDURE: [place] DILATION & CURETTAGE DX&/THER NONOBSTETRIC; COMMENT: D&E [...] Recently Relevant to Health Maintenance Care Teams Control Engineer Relationship Specialty Start Date End Date Fabián Mcarthur MD [address] [place] [address] PCP - General 10/26/22
== END 2025-03-12 15:56 | disposition home or self-care (01) ==
LOC: HO.HMCFM 13:33
PROVIDERS: PCP Nurse Practitioner Family; Visit Provider Nurse Practitioner Family
DX: D64.9 Anemia, unspecified (principal); E66.01 Morbid (severe) obesity due to excess calories; Z68.41 Body mass index [BMI] 40.0-44.9, adult; F41.1 Generalized anxiety disorder; F33.0 Major depressive disorder, recurrent, mild; E55.9 Vitamin D deficiency, unspecified

== ENCOUNTER → 2025-03-12 13:33 | Outpatient (BNVA) | payer OTHER, SELFPAY | PROVIDERS: PCP Nurse Practitioner Family; Visit Provider Nurse Practitioner Family ==

== ENCOUNTER 2025-09-21 10:48 | Outpatient (AMB) | payer OTHER, SELFPAY ==
--- NOTE | 2025-09-21 10:56 | MHC.PC.OV ---
Vital Signs 09/21/25 11:12 Height 5 ft 2 in Weight 237 lb 8 oz BMI 43.4 BP 117/56 L Blood Pressure Location Lt brachial Position Sitting Respiration 16 Pulse 65 Pulse Source Pulse Oximeter Temp 98.9 F Temp Source Oral Pulse Oximetry (%) 97 Oxygen Delivery Method Room Air Intake Visit Reasons: STD testing. / [place] Pt. 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 Is last menstrual period known: Yes Last menstrual period: 08/31/25 Post menopausal: No Patient : No Allergies pollen extracts (POLLEN) Allergy (Unknown, Verified 09/21/25 11:28) RUNNY NOSE Medication List - Last Reconciled 09/21/25 by Clementine Anaya CNP cholecalciferol (vitamin D3) 125 mcg PO DAILY 90 days multivitamin with iron 1 tab PO DAILY Tobacco use date assessed: 09/21/25 Dental Screening Dental Screen Date: 09/21/25 Did you have a dental visit in the last 12 months?: Yes Did you have a dental problem in the last 6 months where you did not have access to dental care?: No Was dental information given to patient?: Patient has dentist HPI HPI Comments History of Present Illness Details 34-year-old female presents with request for STD screening. She notes that she had unprotected sexual intercourse with a new partner after after her 6 relationship ended. She discovered from the [employer] on social media and discovered that her new part has gonorrhea. She denies vaginal burning, pain, or discharged. Denies acute symptoms at this time. She reports ongoing anxiety and depressive symptoms which she notes are chronic. She stopped taking Wellbutrin 3 months after the medication was prescribed for mood and weight management. She notes that the medication was not effective for her mood and weight. She is willing to trial Zoloft and hydrozyxine which she never took in the the past. She denies denies SI/HI/AVH. 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 1. Little interest or pleasure in doing things: several days 2. Feeling down, depressed, or hopeless: several days 3. Trouble falling or staying asleep, or sleeping too much: several days 4. Feeling tired or having little energy: several days 5. Poor appetite or overeating: several days 6. Feeling bad about yourself - or that you are a failure or have let yourself or your family down: several days 7. Trouble concentrating on things, such as reading the newspaper or watching television: several days 8. Moving or speaking so slowly that other people could have noticed. Or the opposite - being so fidgety or restless that you have been moving around a lot more than usual: not at all 9. Thoughts that you would be better off or of hurting yourself in some way: not at all Total score: 7 Depression Screening Interpretation: Positive Depression Screening Follow-up: Existing condition and New Medication prescribed Depression Screening Done: Yes Source: Developed by Drs. Chidi Orozco, Marbella Kearney, Truong Byrne and colleagues, with an educational melchor from [employer]. Thrive Questionnaire Date Thrive assessed: 02/26/25 I am a: Patient What is your living situation today?: I have a steady place to live Within the past 12 months, did the food you bought not last and you didn't have the money to get more?: I choose not to answer this question Within the past 12 months, did you worry whether your food would run out before you got money to buy more?: I choose not to answer this question Do you have trouble paying for medicines?: Yes Do you have trouble getting transportation to medical appointments?: No Do you have trouble paying your heating and electricity bill?: No Do you have trouble taking care of your child, family member or friend?: No Do you have trouble with day-to-day activities such as bathing, preparing meals, shopping, managing finances, etc.?: No Are you currently unemployed and looking for a job?: Yes Are you interested in more education?: I choose not to answer this question Please select the resources that you would like help with: None Currently or been in a relationship where the following occur: I choose not to answer THRIVE Score: 0 AUDIT C Alcohol Use Questionnaire (AUDIT-C) 1. How often do you have a drink containing alcohol?: 2-4 times a month Total Score: 2 MEREDITH-7 AMB Questionnaire MEREDITH-7 Date MEREDITH - 7 assessed: 02/26/25 Feeling nervous, anxious, or on edge: 3 = Nearly every day Not being able to stop or control worryin = Nearly every day Worrying too much about different things: 3 = Nearly every day Trouble relaxin = Nearly every day Being so restless that it is hard to sit still: 3 = Nearly every day Becoming easily annoyed or irritable: 3 = Nearly every day Feeling afraid as if something awful might happen: 3 = Nearly every day Total MEREDITH-7 score (0-4 normal; 5-9 mild; 10-14 moderate; 15-21 severe): 21 Source: Developed by Drs. Chidi Orozco, Marbella Kearney, Truong Byrne and colleagues, with an educational melchor from [employer]. Review of Systems Const Details: Const Denies chills, Denies fatigue, Denies fever(s), Denies headache(s) and Denies weakness ENT Denies dizziness and Denies headache(s) Card Denies chest pain, Denies lightheadedness, Denies dyspnea and Denies other (Palpitations) Resp Denies cough, Denies dyspnea, Denies wheezing and Denies other ( shortness of breath) GI Denies abdominal pain, Denies melena, Denies hematochezia, Denies change in bowel habits, Denies dyspepsia and Denies nausea Denies hematuria and Denies dysuria Musc Denies abnormal gait, Denies myalgias, Denies arthralgias, Denies numbness and Denies tingling Skin/Breast Denies rash, Denies unusual bruising and Denies wounds Neuro Denies abnormal gait, Denies dizziness, Denies headache(s), Denies memory loss, Denies numbness, Denies Sensory deficit (Neuro), Denies tingling and Denies weakness Psych Reports anxiety, Reports depression, Denies memory loss Endo Denies cold intolerance, Denies fatigue, Denies heat intolerance, Denies polydipsia and Denies polyuria Aller/Immun Denies wheezing Physical exam (Primary Care) Vital Signs: Last Vital Signs Temp 98.9 F 09/21/25 11:12 Pulse 65 09/21/25 11:12 Resp 16 09/21/25 11:12 BP 117/56 L 09/21/25 11:12 Pulse Ox 97 09/21/25 11:12 Oxygen Delivery Method Room Air 09/21/25 11:12 BMI result Body Mass Index 43.4 Tobacco/Smoking Status: Tobacco use Status Tobacco use date assessed 09/21/25 09/21/25 11:15 Patient Tobacco Use Status Former Tobacco user 09/21/25 10:59 e-Cigarette/Vaping Use Currently Using 09/21/25 10:59 PHQ-9: PHQ-9 Score PHQ-9: Total score 7 09/21/25 11:15 Depression Screening Interpretation: Positive Depression Screening Follow-up: Existing condition and New Medication prescribed Thrive Assessment: Date of Thrive Assessment Date Thrive assessed 02/26/25 09/21/25 10:59 Currently or been in a relationship where the following occur: I choose not to answer Const Other: General: no acute distress and well developed Nutritional Appearance: well nourished Orientation/consciousness: patient oriented x3 HENMT Head: Yes normocephalic and Yes atraumatic Eyes General: appearance normal, both eyes and all related structures Pupils: Equal, round and reactive pupils present EOM: EOMs intact bilaterally Resp Effort & Inspection: normal respiratory effort Auscultation: clear to auscultation bilaterally Cardio Rate: regular rate Rhythm: regular rhythm Heart sounds: S1 normal heart sound present, S2 normal heart sound present, no gallops, no murmurs and no rubs Extrem General: Yes normal to inspection, No edema and No calf tenderness Skin General: warm and dry. Normal skin color. Normal skin turgor Neuro General: patient oriented x3, gait normal and no focal neuro deficit Cranial nerves: Yes Equal, round and reactive pupils present Cognition (Neuro): normal cognition Gait exam (Neuro): Normal gait present Sensory Exam: No Sensory deficit (Neuro) Psych Appearance: grossly normal Mood: Anxious Affect: Mood-congruent Attitude: cooperative Thought process: Normal thought process present Coding Level of Care Code Est Pt Level 4 (79396) Diagnoses MEREDITH (generalized anxiety disorder) F41.1 Mild episode of recurrent major depressive disorder F33.0 Major depression episode severity: mild Screening for STD (sexually transmitted disease) Z11.3 Assessment & Plan Assessment & Plan (1) MEREDITH (generalized anxiety disorder): Code(s): F41.1 - Generalized anxiety disorder Category: Medical Plan: Reports ongoing anxiety and depressive symptoms which she notes are chronic. She stopped taking Wellbutrin 3 months after the medication was prescribed for mood and weight management. She notes that the medication was not effective for her mood and weight. She is willing to trial Zoloft and hydrozyxine which she never took in the the past. She denies denies SI/HI/AVH. PHQ-9 and MEREDITH-7 score revealed mild depression and severe anxiety respectively. Sertraline 25 mg daily ordered to target depression and hydroxyzine 25 mg twice daily as needed ordered to target anxiety; advised to take as prescribed. Instructed on the risks, benefits, and potential adverse reactions of the medications. Follow-up with PCP in 2 weeks. Return sooner with symptoms or concerns. Verbalized understanding and agreed with the plan. (2) MDD (major depressive disorder), recurrent episode: Code(s): F33.9 - Major depressive disorder, recurrent, unspecified Category: Medical Qualifiers: Major depression episode severity: mild Qualified Code(s): F33.0 - Major depressive disorder, recurrent, mild Plan: Plan as above. (3) Screening for STD (sexually transmitted disease): Code(s): Z11.3 - Encounter for screening for infections with a predominantly sexual mode of transmission Category: Medical Plan: Encouraged safe sex practices. STD labs ordered. Will review results and make changes as needed. Follow-up as needed. Verbalized understanding and agreed with the plan. Orders: Orders CT NG by PCR Urine Today Z11.3 - Encounter for screening for infections with a predominantly sexual mode of transmission Syphilis Screen Today Z11.3 - Encounter for screening for infections with a predominantly sexual mode of transmission Hepatitis B,C Profile Today Z11.3 - Encounter for screening for infections with a predominantly sexual mode of transmission HIV Ab/Ag Today Z11.3 - Encounter for screening for infections with a predominantly sexual mode of transmission Medications: New sertraline 25 mg PO DAILY 30 tabs 1RF 30 days hydroxyzine HCl 25 mg PO BID PRN 60 tabs 1RF anxiety
[2025-09-21 11:12] VITALS: BP 117/56; PULSE 65; RESP 16; TEMP 37.2; O2SAT 97; BMI 43.4
--- OUTSIDE RECORDS SUMMARY | 2025-09-21 12:56 | XMS_ITS | Clinical Summary ---
Author Organization [facility] ity Address [address] [place] [address] Care Team Providers Care Director Sanitation Bureau Name Role Phone Fabián Mcarthur MD Primary Care Provider Allergies No known active allergies Active Problems Problem Noted Date Diagnosed Date Asthma 11/01/2024 Marijuana use 06/04/2017 Overview (11/01/2024): + at IP Anxiety 06/03/2017 Overview (11/01/2024): Very anxious, Davis for depression =21, referred to [facility], appointment made for 06/12/17 Surgical History Surgery Date Site/Laterality Comments SECTION 2011 PROCEDURE: HISTORICAL DELIVERY TONSILLECTOMY PROCEDURE: HISTORICAL TONSILLECTOMY; COMMENT: age 9 OTHER SURGICAL HISTORY 2013 PROCEDURE: MI DILATION & CURETTAGE DX&/THER NONOBSTETRIC; COMMENT: D&E [...] 5 Years) and At-Risk Patients (6 to 49 Years) (1 of 2 - PCV) 2011 HPV Vaccines (1 - 3-dose SCD M series) 2019 Cervical Cancer Screening: P ap Smear 06/12/2020 06/12/2017, 06/12/2017 Hepatitis C Screening 10/13/2022 Social Influencers of Health Screening 10/13/2022 Depression Screening 11/11/2024 COVID-19 Vaccine (1 - 2024-2 6 season) 2025 Influenza Vaccine (#1) 2025 2, 10/23/2017 DTaP,Tdap,and Td Vaccines (2 - Td or Tdap) 12/25/2027 12/25/2017 RSV Immunization Adult Patients (1 - 1-dose 75+ series) 2067 HIV Screening Completed 06/03/2017 HIB Vaccines Aged [...] Recently Relevant to Health Maintenance Care Teams Director Sanitation Bureau Relationship Specialty Start Date End Date Fabián Mcarthur MD [address] [place] [address] PCP - General 10/26/22
== END 2025-09-21 13:28 | disposition home or self-care (01) ==
LOC: HO.HMCFM 10:49
PROVIDERS: PCP Nurse Practitioner Family; Visit Provider Nurse Practitioner Family
DX: F41.1 Generalized anxiety disorder (principal); F33.0 Major depressive disorder, recurrent, mild; Z11.3 Encounter for screening for infections with a predominantly sexual mode of transmission

== ENCOUNTER 2025-09-21 10:48 | Outpatient (REF) | payer OTHER, SELFPAY ==
--- OUTSIDE RECORDS SUMMARY | 2025-09-21 14:00 | XMS_ITS | Data Portability ---
Author Organization [facility], [address] Address [address] [place] [address] Assessment No assessment recorded. Plan of Treatment Reminders Order Date Submit Date Provider Last Modified By Organization Details Last Modified Time Details Appointments None recorded. Lab None recorded. Referral None recorded. Procedures None recorded. Surgeries None recorded. Imaging None recorded. Medication Orders cephalexin 500 mg capsule 2022 023 [facility]acy #[id number], [address] [place], [address], 3 12:44:05 ofloxacin 0.3 % eye drops 2022 023 [facility] #[id number], [address] [place], [address], 3 12:44:05 Patient TargetsNo targets recorded. Patient Instructions Encounter Date Encounter Id Patient Instructions Last Modified By Organization Details Last Modified Time 02/08/2023 [id number] [email or web address]: care instructions [email or web address] Not available 02/08/2023 12:44:12 Reason for Referral None Reported. Problems Name Problem SNOMED Code Status Onset Date Resolution Date Notes Provider Name and Address Organization Details Recorded Time Anxiety 74633902 Active 023 [facility] 11:44:00 Insomnia 336902748 Active 023 [facility] 3 11:44:07 Problem Notes None recorded. Procedures Surgical History Date Name Laterality Status Provider Name and Address Organization Details Recorded Time tonsillectomy completed Kim Riddle [facility] 02/08/2023 11:44:51 Imaging Results None recorded. [...] Heart rate Respiratory rate Body temperature Systolic And Diastolic Provider Name and Address Organization Details Last Updated DateTime 3 144531. 47 g 40.2 kg/m2 160.02 cm 0 98 % 98 % 60 /min 18 /min 98.7 [degF] 126/77 mm[Hg] Kim Riddle [facility] 3 11:46:35 Social History Question Answer Notes LastModified by Organizat ion Details LastModified Time Tobacco Smoking Status Never Smoker [facility] 02/08/2023 11:44:42 Which Illicit Or Recreational Drugs Have You Used? Kelvin [email or web address] Information not available 02/08/2023 Sex: Unknown Functional Status Question Answer Note LastModified by Organizat ion Details LastModified Time Do you use any illicit or recreational drugs? Yes [email or web address] Information not available 02/08/2023 Do you or have you ever used any other forms of tobacco or nicotine? No [email or web address] Information not available 02/08/2023 What is your level of alcohol consumption? Occasional [email or web address] Information not available 02/08/2023 Mental Status None recorded. Family History Nothing Reported. Medical History No medical history recorded. Gynecological HistoryNo gynecological history recorded. Obstetrics History GPAL:G 0 P 0 0 0 0 Past Encounters Encounter ID Performer Location Encounter Start Date Encounter Closed Date Diagnosis/Indication Diagnosis SNOMED-CT Code Diagnosis ICD10 Code Diagnosis IMO Codes Diagnosis Note [id number] [facility] [facility] [address] [place] [address] 08/01/2018 14:41:23 08/01/2018 15:14:17 [id number] Catalina Young [place] [id number] [place] [address] 02/08/2023 11:25:19 02/08/2023 12:49:23 Internal hordeolum of upper eyelid 199591661 H00.029 Please follow up with PCP or [...] Recorded Advance Directives Directive None Recorded Payers Insurance Date Sequence Insurance Name Policy Number Policy Greer Covered Member ID Greer Member ID Guarantor Name 02/08/2023 1 [facility] PLAN (MEDICAID HMO) SARABJIT Fermin Salcido [id number] Nicole Fermin Notes Date Note Type Note Provider Name and Address Organization Details Recorded Time 02/08/2023 text/html Eye problemsRepo rted by PatientHPIFor eye symptoms, patient reportsrednessanddisc harge. For location, patient reportsleft. For onset/timing, patient [id number]. Catalina Young MD [address] [place], [address], [place] - [facility] 02/08/2023 13:04:09 OBGyn Episode No OBEpisode recorded.
[2025-09-21 15:31] LABS: CT PCR Urine NOT DETECTED (Not Detect.); NG PCR Urine NOT DETECTED (Not Detect.)
[2025-09-22 04:10] LABS: Syphilis Screen Nonreactive (Nonreactive)
[2025-09-22 04:17] LABS: HBS Num1 2.68 mIU/mL (0-7.99); HBc Num1 0.13 S/CO (0.00-0.79); HBsAGNum1 0.53 S/CO (0.00-0.99); HIV Num 1 0.06 S/CO (0.00-0.99); Hepatitis B Surface Antigen Negative (Negative); ~HepC Num1 0.09 S/CO (0.00-0.79); ~Hepatitis B Surface Antibody NONREACTIVE (Nonreactive); ~Hepatitis C Antibody Nonreactive (Nonreactive)
== END 2025-09-21 10:49 | disposition home or self-care (01) ==
LOC: HO.WFDLDS 10:48
PROVIDERS: PCP Nurse Practitioner Family; Visit Provider Nurse Practitioner Family
DX: F41.1 Generalized anxiety disorder (principal); F33.0 Major depressive disorder, recurrent, mild; Z20.2 Contact with and (suspected) exposure to infections with a predominantly sexual mode of transmission
CPT/HCPCS: 86704; 86706; 86780; 86803; 87340; 87389; 87491; 87591; 96127